=== PATIENT | male | born 1940 | race Caucasian/White ===

== ENCOUNTER 2021-03-26 07:51 | Outpatient (CLI) | payer MEDICARE, SELFPAY ==
--- NOTE | 2021-03-26 07:59 | US_ITS ---
History: Leg mass Ultrasound of the left lower extremity: Findings: 4.8 x 2.4 x 1.1 cm avascular cystic area noted along the proximal portion of the calf medially. Dissection of a Brice cyst to be considered. No complexity or hypervascularity to suggest hematoma or abscess. IMPRESSION: Benign cystic lesion of the left calf as described.. at 1212 Reported and signed by: Aneudy Luis MD Electronically Signed: Aneudy Luis MD at 12:11 EST Tel , Service support , US/Ext Non Vasc Limited/Soft Tiss
== END 2021-03-26 23:59 | disposition short-term general hospital (02) ==
PROVIDERS: PCP Family Medicine; Referring Provider Family Medicine; Visit Provider Family Medicine
DX: R22.42 Localized swelling, mass and lump, left lower limb (principal)
CPT/HCPCS: 76882

== ENCOUNTER → 2021-08-11 | Outpatient (CLI) | payer MEDICARE, SELFPAY | END | disposition home or self-care (01) | PROVIDERS: PCP Family Medicine; Referring Provider Podiatrist; Visit Provider Podiatrist | DX: L97.512 Non-pressure chronic ulcer of other part of right foot with fat layer exposed (principal) | CPT/HCPCS: 87070; 87075; 87077; 87186; 87205 ==

== ENCOUNTER 2021-10-05 08:00 | Outpatient (RCR) | payer MEDICARE, SELFPAY ==
[2021-09-28 07:51] VITALS: BP 151/93; PULSE 111; RESP 16; TEMP 36.2; BMI 28.6
--- NOTE | 2021-09-28 09:36 | PCM.WC.HP ---
History of Present Illness Date of Service: 09/28/21 Progress of Wound: 81-year-old male with history of cardiovascular disease presents with a chronic right hallux wound. Patient was being followed in my office. Patient was receiving weekly debridements with offloading via surgical shoe. Patient was noncompliant with use of surgical shoe. Presents today with residual wound to right hallux. Denies any constitutional symptoms or pain to the site. Patient is diabetic and has neuropathy. No new changes or complaints at this time. FOR[facility]LY [facility], [facility] Home Medications apixaban 5 mg tablet (Eliquis) 5 mg PO BID 09/28/21 [History Last Taken Unknown] aspirin 81 mg capsule 81 mg PO DAILY 09/28/21 [History Last Taken Unknown] atorvastatin 40 mg tablet 40 mg PO QHS 09/28/21 [History Last Taken Unknown] furosemide 20 mg tablet 20 mg PO DAILY 09/28/21 [History Last Taken Unknown] hydrochlorothiazide 50 mg tablet 50 mg PO DAILY 09/28/21 [History Last Taken Unknown] insulin glargine 100 unit/mL (3 mL) subcutaneous pen (Lantus Solostar U-100 Insulin) 24 unit subcut DAILY 09/28/21 [History Last Taken Unknown] metoprolol tartrate 50 mg tablet 75 mg PO BID 09/28/21 [History Last Taken Unknown] zgwqrmhklbwq-lufxscmi-bycqcw tablet 1 tab PO DAILY 09/28/21 [History Last Taken Unknown] thiamine HCl (vitamin B1) 50 mg tablet 50 mg PO DAILY 09/28/21 [History Last Taken Unknown] Allergy/AdvReac Type Severity Reaction Status Date / Time No Known Allergies Allergy Verified 09/28/21 08:00 Social History Smoking Status: Never smoker ROS Constitutional Constitutional: Denies chills, daytime sleepiness or headache(s) Eyes Eyes: Denies acute decrease in peripheral vision, change in vision or double vision ENT HEENT: Denies change in voice, facial pain or loss taste/smell Cardiovascular Cardiovascular: Denies abdominal pain, chest pain with activity or dyspnea at rest Respiratory/Chest Respiratory/Chest: Denies change in phlegm color, chest congestion or dyspnea on exertion Gastrointestinal Gastrointestinal: Denies bloating, cramping or heartburn Genitourinary Genitourinary: Denies burning urination, change in libido or dribbling Musculoskeletal Musculoskeletal: Denies deformity, difficulty walking or loss of height Integumentary Integumentary: Denies change in hair, change in pigmentation or lesions Neurologic Neurologic: Denies abnormal movements, dizziness or focal weakness Psychiatric Psychiatric: Denies auditory hallucinations, depression or memory loss Vital Signs Vital Signs Vital Signs: 09/28/21 07:51 Temperature 97.2 F L Temperature Source Temporal Pulse Rate 111 H Respiratory Rate 16 Blood Pressure 151/93 H Blood Pressure Mean 112 Blood Pressure Source Monitor Blood Pressure Position Sitting Blood Pressure Location Left Arm Oxygen Delivery Method Room Air Weight Weight: 83.007 kg Body Mass Index (BMI) 28.6 Physical Exam Narrative Patient alert oriented person place and time patient presents ambulating in normal shoe gear at this time. Vascular: Dorsalis pedis posterior tibial pulses 1 out of 4 bilaterally. Capillary fill time brisk to lesser digits. Absent digital hair growth atrophic skin changes noted. Neurologic light touch protective sensation diminished bilateral feet reestablish mid tibia. Dermatologic full-thickness wound to right plantar medial hallux. Postdebridement measurements document nursing notes are significant periwound callus no signs of infection deep probing or undermining at this time. Musculoskeletal: There is a hallux valgus deformity contributing to wound formation on the right lower extremity. No pain with calf squeeze muscular strength full to bilateral lower extremity compartments. Debridement Note Debridement Note Post-Debridement Measurements and Additional Note: Post-Debridement Measurements/Treatment - Nurse 1 - General Ulcer Assessment Start: 09/28/21 07:50 Freq: Status: Active Protocol: .LOWEXLesly Activity Type Activity Date Activity User E-sign Co-sign Detail Recorded Client Recorded Date Recorded By Document 09/28/21 07:51 [facility] [id number] 09/28/21 07:56 [facility] 09/28/21 07:51 - Today's Visit Information Type of service Follow-up Visit (Physician/[facility] [employer] ) Arrival Mode Ambulatory Transfer Assistance None Patient Identification Verified (Name & Yes ) Patient Requires Transmission-Based No Precautions Height and Weight Height 5 ft 7 in Weight 83.007 kg Weight in Pounds 183.0 lbs Weight Measurement Method Stated by Patient Body Mass Index (BMI) 28.6 BMI Classification Overweight BSA - Neo 1.95 Vital Signs Temperature (97.8 F-99.1 F) 97.2 F L Temperature Source Temporal Pulse Rate (60-100) 111 H Pulse Location Monitor Respiratory Rate (12-18) 16 Respiratory rate source Observation Oxygen Delivery Method Room Air Blood Pressure (90/60-120/80) 151/93 H Blood Pressure Mean 112 Source Monitor Position Sitting Blood Pressure Location Left Arm History Since Last Visit- (Skip if this is Patient's initial visit) Left Footwear Regular Shoe Right Footwear Regular Shoe Pain Scale: 0-10 Numeric Is Patient Pain Free? Yes Lower Extremity Assessment/ Foot Assessment/ Toe Nail Assessment Left -Posterior Tibial Doppler Monophasic -Dorsalis Pedis Doppler Monophasic -Extremity Color Pale -Hair Growth on Legs No -Hair Growth on Toes No -Temperature of Extremity Warm -Other Deformity No -Prior Foot Ulcer No -Charcot Joint No -Prior Amputation No -Thick Yes -Discolored Yes -Deformed No -Improper Length & Hygeine No Right -Posterior Tibial Doppler Monophasic -Dorsalis Pedis Doppler Monophasic -Extremity Color Pale -Hair Growth on Legs No -Hair Growth on Toes No -Temperature of Extremity Warm -Other Deformity No -Prior Foot Ulcer No -Charcot Joint No -Prior Amputation No -Thick Yes -Discolored Yes -Deformed No -Improper Length & Hygeine No Neuropathy Assessment Feet - Top Side and Bottom <Entered> (a) Communication Assessment Preferred language Dominican Desktop Support Consultant Required No Able to Read Yes Able to Write Yes Communication Tools None Right Hearing Abillity Normal Left Hearing Abillity Normal Visual Assistive Devices Glasses Teaching Assessment Preferences Verbal,Written, Audio/Visual, Demonstration Barriers to Learning None Readiness To Learn Excellent Willingness to Engage in Self Management High Activies Readiness to Engage in Self Management High Activities Anxiety Level Calm Cooperation Cooperative Perception Coherent Interest in Health Problem Asks Questions Education Importance Acknowledges Need Does Patient Smoke tobacco or other No substances Smoking Status Never smoker Is Patient Diabetic Yes Functional Assessment Recent Decline in Ability to Perform Denies Any Declines Culture/Spiritism/Rehabilitation Assistant Cultural/Spiritism Needs that may affect No Treatment Plan Teaching: Wound Center *Welcome to the Wound Center -Person Taught Patient -Teaching Method Discussion -Response to teaching Verbalize understanding Welcome to the Wound Care Center Dominican (a) 1 - + WC - Nurse 1 - General Ulcer Measurement Start: 09/28/21 07:50 Freq: Status: Active Protocol: Activity Type Activity Date Activity User E-sign Co-sign Detail Recorded Client Recorded Date Recorded By Document 09/28/21 07:51 [facility] [id number] 09/28/21 07:56 [facility] 09/28/21 07:51 Wound Center Nurse 1 #1- R PLANTAR HALLUX -Combined with other wound No -Current Size (cm) - Length 0.5 -Current Size (cm) - Width 0.5 -Current Size (cm) - Depth 0.5 -Total Square Cm 0.25 -Date of Last Picture (Recall this 09/28/21 field) -Photo Taken Yes -Tunneling No -Undermining/Tunneling No -Circular Undermining No -Exudate Amt Small -Exudate Type Sanguineous -Wound Margin Distinct, Outline Attached -Granulation Amt Large (67-100%) -Granulation Quality Red -Slough/Fibrin No -Necrosis Amt None Present (0 %) -Texture (Neema-wound Skin Appearance) Assessed,Callus ,Scarring -Moisture (Neema-wound Skin Appearance) Dry/Scaly -Color (Neema-wound Skin Appearance) Assessed -Temperature (Neema-wound Skin No Abnormality Appearance) (Pt Warm) -Tenderness on Palpation (Neema-wound No Skin Appearance) -Ulcer Cleansing Rinsed/ Irrigated with Saline -Foul Odor after Cleansing No -Anesthetic Used 5% Lidocaine Gel Lower Limb Edema Present Yes Right Calf (cm) 37 Right Ankle (cm) 25.6 Left Calf (cm) 35.5 Left Ankle (cm) 24.5 - Nurse 2 - General Ulcer CM Notes Start: 09/28/21 07:50 Freq: Status: Active Protocol: Activity Type Activity Date Activity User E-sign Co-sign Detail Recorded Client Recorded Date Recorded By Document 09/28/21 08:22 [id number] 09/28/21 08:24 09/28/21 08:22 Wound Center Nurse 2 #1- R PLANTAR HALLUX -Time 08:23 -Correct Patient Yes -Correct Side, Site, Position Yes -Correct Procedure Yes -Procedure Performed Yes -Type of Procedure Debridement -Clinical Debridement Subcutaneous -Tissue Removed Subcutaneous -Post Debridement (cm) - Length 0.6 -Post Debridement (cm) - Width 0.5 -Post Debridement (cm) - Depth 0.2 -Total Square (Post) (cm) 0.30 -Area of Debridement (cm) - Length 0.6 -Area of Debridement (cm) - Width 0.5 -Total Square (Area) (cm) 0.30 -Tunneling No -Undermining/Tunneling No -Circular Undermining No -Wound/Ulcer Outcome Not Healed -Ulcer Cleansing Rinsed/ Irrigated with Saline -Foul Odor after Cleansing No -Bioengineered Tissue No -Bleeding Controlled with Pressure -Treatment Response Procedure Tolerated Well -Offloading Yes -Type of Offloading Surgical Shoe -Debridement - Subq, 1st 20sq cm Yes Pain Scale: 0-10 Numeric Is Patient Pain Free? Yes - Nurse 3 - General Ulcer D/C NN Start: 09/28/21 07:50 Freq: Status: Active Protocol: Activity Type Activity Date Activity User E-sign Co-sign Detail Recorded Client Recorded Date Recorded By Document 09/28/21 08:40 МАРИЯ [id number] 09/28/21 08:41 МАРИЯ 09/28/21 08:40 Wound Care Nurse 3 #1- R PLANTAR HALLUX -Ulcer Cleansing Rinsed/ Irrigated with Saline -Foul Odor after Cleansing No -Negative Pressure Wound Therapy N/A -Primary Dressing Applied C Hydrogel ($) -Primary Dressing Covered/Secured with Dry Gauze, Secured with Tape Pain Scale: 0-10 Numeric Is Patient Pain Free? Yes WC - Visit Discharge Discharge Condition Stable Ambulatory Status Ambulatory Transportation Private Auto Medication Reconcilliation completed & Yes provided to patient/care provider Clinical Summary of Care Provided Yes Assessment/Plan Assessment/Plan (1) Non-pressure chronic ulcer of other part of right foot with fat layer exposed: CODE(S): L97.512 - Non-pressure chronic ulcer of other part of right foot with fat layer exposed PLAN: Patient examined evaluated, all findings as patient great detail. Due to history of cardiovascular disease and diabetes I recommend ordering arterial studies. Right hallux wound appears to be stable and noninfected at this time I recommend improved offloading to heal the wound. Patient has been inconsistent with use of surgical shoe and offloading pad. At this time I have recommended correction of his hallux valgus deformity surgically versus total contact casting, patient defers both. Wound was excisionally debrided down to including level of subcutaneous tissue of all nonviable tissue using a #15 blade without incident. Hemostasis obtained with light compression. No anesthesia due to neuropathy. Patient tolerated procedure well. Pre and postdebridement measurements document nursing notes. Recommend daily dressing with hydrogel and 4 x 4 with gauze tape. I have discussed in great detail the purpose of offloading the wound and how this will assist healing, patient will be more compliant moving forward. We will consider total contact casting or surgical intervention pending any delays. Follow-up in 1 week. (2) Peripheral vascular disease, unspecified: CODE(S): I73.9 - Peripheral vascular disease, unspecified
[2021-10-05 08:05] VITALS: BP 142/94; PULSE 105; RESP 20; TEMP 36.8; BMI 28.6
--- NOTE | 2021-10-05 09:03 | PN.PCM_ITS ---
History of Present Illness Date of Service: 10/05/21 Progress of Wound: 81-year-old male with history of cardiovascular disease presents with a chronic right hallux wound. Patient was being followed in my office. Patient was receiving weekly debridements with offloading via surgical shoe. Patient was noncompliant with use of surgical shoe. Presents today with residual wound to right hallux. Denies any constitutional symptoms or pain to the site. Patient is diabetic and has neuropathy. No new changes or complaints at this time. Objective Data Objective Data Vital Signs: Vital Signs Temp Pulse Resp BP O2 Del Method 98.3 F 105 H 20 H 142/94 H Room Air 10/05/21 08:05 10/05/21 08:05 10/05/21 08:05 10/05/21 08:05 09/28/21 07:51 Oxygen Delivery Method Room Air Weight: 83.007 kg Body Mass Index (BMI) 28.6 Physical Exam Narrative Patient alert oriented person place and time patient presents ambulating in normal shoe gear at this time. Vascular: Dorsalis pedis posterior tibial pulses 1 out of 4 bilaterally. Capillary fill time brisk to lesser digits. Absent digital hair growth atrophic skin changes noted. Neurologic light touch protective sensation diminished bilateral feet reestablish mid tibia. Dermatologic full-thickness wound to right plantar medial hallux. Postde bridement measurements document nursing notes are significant periwound callus no signs of infection deep probing or undermining at this time. Musculoskeletal: There is a hallux valgus deformity contributing to wound formation on the right lower extremity. No pain with calf squeeze muscular strength full to bilateral lower extremity compartments. Debridement Note Debridement Note Post-Debridement Measurements and Additional Note: Post-Debridement Measurements/Treatment - Nurse 1 - General Ulcer Assessment Start: 09/28/21 07:50 Freq: Status: Active Protocol: [email or web address].LOWEXT Activity Type Activity Date Activity User E-sign Co-sign Detail Recorded Client Recorded Date Recorded By Document 09/28/21 07:51 [facility] [id number] 09/28/21 07:56 BMF Document 10/05/21 08:05 DL [id number] 10/05/21 08:10 DL 09/28/21 10/05/21 07:51 08:05 - Today's Visit Information Type of service Follow-up Visit Follow-up Visit (Physician/JUNIOR NETWORK ADMINISTRATOR (Physician/JUNIOR NETWORK ADMINISTRATOR ) ) Arrival Mode Ambulatory Ambulatory Transfer Assistance None None Patient Identification Verified (Name & Yes Yes ) Patient Requires Transmission-Based No No Precautions Finger Stick Blood Sugar(mg/dl) (if not checked indicated): Blood Sugar Stated by Patient Height and Weight Height 5 ft 7 in Weight 83.007 kg Weight in Pounds 183.0 lbs Weight Measurement Method Stated by Patient Body Mass Index (BMI) 28.6 28.6 BMI Classification Overweight Overweight BSA - Neo 1.95 Vital Signs Temperature (97.8 F-99.1 F) 97.2 F L 98.3 F Temperature Source Temporal Temporal Pulse Rate (60-100) 111 H 105 H Pulse Location Monitor Monitor Respiratory Rate (12-18) 16 20 H Respiratory rate source Observation Observation Oxygen Delivery Method Room Air Blood Pressure (90/60-120/80) 151/93 H 142/94 H Blood Pressure Mean (mm Hg) 112 110 Source Monitor Monitor Position Sitting Blood Pressure Location Left Arm History Since Last Visit- (Skip if this is Patient's initial visit) Have you changed medications since your No last visit? Any new allergies or adverse reactions No Had a fall/change in ADL's that may No increase risk of falls Signs or symptoms of abuse and/or No neglect since last visit Have you been in the hospital since your No last visit? Has dressing in place as prescribed Yes Has compression in place as prescribed N/A Experienced any changes in pain level or No management Left Footwear Regular Shoe Regular Shoe Right Footwear Regular Shoe Regular Shoe Pain Scale: 0-10 Numeric Is Patient Pain Free? Yes Yes Lower Extremity Assessment/ Foot Assessment/ Toe Nail Assessment Left -Posterior Tibial Doppler Monophasic -Dorsalis Pedis Doppler Monophasic -Extremity Color Pale -Hair Growth on Legs No -Hair Growth on Toes No -Temperature of Extremity Warm -Other Deformity No -Prior Foot Ulcer No -Charcot Joint No -Prior Amputation No -Thick Yes -Discolored Yes -Deformed No -Improper Length & Hygeine No Right -Posterior Tibial Doppler Monophasic -Dorsalis Pedis Doppler Monophasic -Extremity Color Pale -Hair Growth on Legs No -Hair Growth on Toes No -Temperature of Extremity Warm -Other Deformity No -Prior Foot Ulcer No -Charcot Joint No -Prior Amputation No -Thick Yes -Discolored Yes -Deformed No -Improper Length & Hygeine No Neuropathy Assessment Feet - Top Side and Bottom <Entered> (a) Communication Assessment Preferred language Palestinian Student Services Dean Required No Able to Read Yes Able to Write Yes Communication Tools None Right Hearing Abillity Normal Left Hearing Abillity Normal Visual Assistive Devices Glasses Teaching Assessment Preferences Verbal,Written, Audio/Visual, Demonstration Barriers to Learning None Readiness To Learn Excellent Willingness to Engage in Self Management High Activies Readiness to Engage in Self Management High Activities Anxiety Level Calm Cooperation Cooperative Perception Coherent Interest in Health Problem Asks Questions Education Importance Acknowledges Need Does Patient Smoke tobacco or other No substances Smoking Status Never smoker Is Patient Diabetic Yes Functional Assessment Recent Decline in Ability to Perform Denies Any Declines Culture/Hinduism/Sales Department Manager Cultural/Hinduism Needs that may affect No Treatment Plan Teaching: Wound Center *Welcome to the Wound Center -Person Taught Patient -Teaching Method Discussion -Response to teaching Verbalize understanding Welcome to the [facility] Palestinian (a) 1 - + WC - Nurse 1 - General Ulcer Measurement Start: 09/28/21 07:50 Freq: Status: Active Protocol: Activity Type Activity Date Activity User E-sign Co-sign Detail Recorded Client Recorded Date Recorded By Document 09/28/21 07:51 [facility] [id number] 09/28/21 07:56 [facility] Document 10/05/21 08:05 [id number] 10/05/21 08:10 DL 09/28/21 10/05/21 07:51 08:05 Wound Center Nurse 1 #1- R PLANTAR HALLUX -Combined with other wound No -Current Size (cm) - Length 0.5 0.4 -Current Size (cm) - Width 0.5 0.2 -Current Size (cm) - Depth 0.5 0.2 -Total Square Cm 0.25 0.08 -Date of Last Picture (Recall this 09/28/21 field) -Photo Taken Yes -Tunneling No -Undermining/Tunneling No -Undermining/Tunneling Starts (O'clock 12 ) -Undermining/Tunneling Ends (O'clock) 12 -Maximum Distance (cm) 0.2 -Circular Undermining No -Exudate Amt Small None Present -Exudate Type Sanguineous -Wound Margin Distinct, Distinct, Outline Outline Attached Attached -Granulation Amt Large (67-100%) Large (67-100%) -Granulation Quality Red Pale -Slough/Fibrin No -Necrosis Amt None Present (0 None Present (0 %) %) -Texture (Neema-wound Skin Appearance) Assessed,Callus Assessed, ,Scarring Scarring -Moisture (Neema-wound Skin Appearance) Dry/Scaly Assessed,Dry/ Scaly -Color (Neema-wound Skin Appearance) Assessed No Abnormality, Assessed -Temperature (Neema-wound Skin No Abnormality No Abnormality Appearance) (Pt Warm) (Pt Warm) -Tenderness on Palpation (Neema-wound No No Skin Appearance) -Ulcer Cleansing Rinsed/ Rinsed/ Irrigated with Irrigated with Saline Saline -Foul Odor after Cleansing No No -Anesthetic Used 5% Lidocaine 5% Lidocaine Gel Gel Lower Limb Edema Present Yes Right Calf (cm) 37 Right Ankle (cm) 25.6 Left Calf (cm) 35.5 Left Ankle (cm) 24.5 WC - Nurse 2 - General Ulcer CM Notes Start: 09/28/21 07:50 Freq: Status: Active Protocol: Activity Type Activity Date Activity User E-sign Co-sign Detail Recorded Client Recorded Date Recorded By Document 09/28/21 08:22 [id number] 09/28/21 08:24 Document 10/05/21 08:37 [id number] 10/05/21 08:39 09/28/21 10/05/21 08:22 08:37 Wound Center Nurse 2 #1- R PLANTAR HALLUX -Time 08:23 08:38 -Correct Patient Yes Yes -Correct Side, Site, Position Yes Yes -Correct Procedure Yes Yes -Procedure Performed Yes Yes -Type of Procedure Debridement Debridement -Clinical Debridement Subcutaneous Subcutaneous -Tissue Removed Subcutaneous Subcutaneous -Post Debridement (cm) - Length 0.6 0.5 -Post Debridement (cm) - Width 0.5 0.2 -Post Debridement (cm) - Depth 0.2 0.2 -Total Square (Post) (cm) 0.30 0.10 -Area of Debridement (cm) - Length 0.6 0.5 -Area of Debridement (cm) - Width 0.5 0.2 -Total Square (Area) (cm) 0.30 0.10 -Tunneling No No -Undermining/Tunneling No No -Circular Undermining No No -Wound/Ulcer Outcome Not Healed Not Healed -Ulcer Cleansing Rinsed/ Rinsed/ Irrigated with Irrigated with Saline Saline -Foul Odor after Cleansing No No -Bioengineered Tissue No No -Bleeding Controlled with Pressure Pressure -Treatment Response Procedure Procedure Tolerated Well Tolerated Well -Offloading Yes Yes -Type of Offloading Surgical Shoe Surgical Shoe -Debridement - Subq, 1st 20sq cm Yes Yes Pain Scale: 0-10 Numeric Is Patient Pain Free? Yes Yes - Nurse 3 - General Ulcer D/C NN Start: 09/28/21 07:50 Freq: Status: Active Protocol: Activity Type Activity Date Activity User E-sign Co-sign Detail Recorded Client Recorded Date Recorded By Document 09/28/21 08:40 AK [id number] 09/28/21 08:41 AK Document 10/05/21 08:45 KR [id number] 10/05/21 08:45 KR 09/28/21 10/05/21 08:40 08:45 Wound Care Nurse 3 #1- R PLANTAR HALLUX -Ulcer Cleansing Rinsed/ Rinsed/ Irrigated with Irrigated with Saline Saline -Foul Odor after Cleansing No -Negative Pressure Wound Therapy N/A -Primary Dressing Applied C Hydrogel ($) C Hydrogel ($) -Primary Dressing Covered/Secured with Dry Gauze, Dry Gauze, Secured with Secured with Tape Tape Pain Scale: 0-10 Numeric Is Patient Pain Free? Yes Yes - Visit Discharge Discharge Condition Stable Stable Ambulatory Status Ambulatory Ambulatory Transportation Private Auto Private Auto Medication Reconcilliation completed & Yes provided to patient/care provider Clinical Summary of Care Provided Yes Assessment/Plan Assessment/Plan (1) Non-pressure chronic ulcer of other part of right foot with fat layer exposed: CODE(S): L97.512 - Non-pressure chronic ulcer of other part of right foot with fat layer exposed PLAN: Patient examined evaluated, all findings as patient great detail. Due to history of cardiovascular disease and diabetes I recommend ordering arterial studies. Right hallux wound appears to be stable and noninfected at this time I recommend improved offloading to heal the wound. Patient has been inconsistent with use of surgical shoe and offloading pad. At this time I have recommended correction of his hallux valgus deformity surgically versus total contact casting, patient defers both. Wound was excisionally debrided down to including level of subcutaneous tissue of all nonviable tissue using a #15 blade without incident. Hemostasis obtained with light compression. No anesthesia due to neuropathy. Patient tolerated procedure well. Pre and postdebridement measurements document nursing notes. Recommend daily dressing with hydrogel and 4 x 4 with gauze tape. I have discussed in great detail the purpose of offloading the wound and how this will assist healing, patient will be more compliant moving forward. We will consider total contact casting or surgical intervention pending any delays. Follow-up in 1 week. Wound improved, follow up in 3 weeks. Continue offloading with surgical shoe and offloading pad. I will recommend TCC if no healing on follow up. (2) Peripheral vascular disease, unspecified: CODE(S): I73.9 - Peripheral vascular disease, unspecified
== END 2021-10-17 23:59 | disposition home or self-care (01) ==
LOC: WC 08:00
PROVIDERS: PCP Family Medicine; Visit Provider Podiatrist
DX: L97.512 Non-pressure chronic ulcer of other part of right foot with fat layer exposed (principal); I73.9 Peripheral vascular disease, unspecified; Z79.01 Long term (current) use of anticoagulants; R60.0 Localized edema
CPT/HCPCS: 11042; 99213; G0463

== ENCOUNTER → 2021-11-04 | Outpatient (CLI) | payer MEDICARE, SELFPAY ==
--- NOTE | 2021-11-04 13:59 | ART_ITS ---
Reason For Study: PVD Procedure A bilateral lower extremity continuous wave Doppler with analog waveform analysis,segmental pressures,and ankle brachial indexes without exercise. Left Segmental Pressures Left brachial= 172mmHg. Left posterior tibial artery = 190mmHg. Left dorsalis pedis artery = 217mmHg. Left digit = 156 mmHg. The left dorsalis pedis waveforms are triphasic. The left posterior tibial artery waveforms are triphasic. Right Segmental Pressures Right brachial= 172mmHg. Right posterior tibial artery = 224mmHg. Right dorsalis pedis artery = 209mmHg. The right dorsalis pedis waveforms are triphasic. The right posterior tibial artery waveforms are triphasic. Indices The right ankle brachial index by the dorsalis pedis is 1.22. The right ankle brachial index by the posterior tibial artery is 1.30. The left ankle brachial index by the dorsalis pedis is 1.26. The left ankle brachial index by the posterior tibial artery is 1.10. The left digital-brachial index is 0.91. VL/Lower Ext Art Exam w/o Exercis Interpretation Summary Triphasic Doppler waveforms are noted at ankle level bilaterally. Pulse-volume recordings appear satisfactory at all levels bilaterally. Resting ankle-brachial indices are norm al bilaterally. The right digital-brachial index was not determined due to the presence of a bandag e. The left digital- brachial index is normal. Arterial flow appears normal at ankle level bilaterally, and at digital level o n the left. Arterial flow was not assessed at digital level on the right. Ordering Physician: Charles Romero Referring Physician: Theo Mendoza Performed By: Maria G Puckett RVT
== END | disposition home or self-care (01) ==
PROVIDERS: PCP Family Medicine; Visit Provider Podiatrist
DX: I73.9 Peripheral vascular disease, unspecified (principal)
CPT/HCPCS: 93923

== ENCOUNTER 2021-11-09 08:15 | Outpatient (RCR) | payer MEDICARE, SELFPAY ==
[2021-10-18 00:38] VITALS: BP 142/94; PULSE 105; RESP 20; TEMP 36.8; BMI 28.6
[2021-10-26 08:25] VITALS: BP 142/93; PULSE 103; RESP 20; TEMP 36.1; BMI 28.6
--- NOTE | 2021-10-26 09:04 | PN.PCM_ITS ---
History of Present Illness Date of Service: 10/05/21 Progress of Wound: 81-year-old male with history of cardiovascular disease presents with a chronic right hallux wound. Patient was being followed in my office. Patient was receiving weekly debridements with offloading via surgical shoe. Patient was noncompliant with use of surgical shoe. Presents today with residual wound to right hallux. Denies any constitutional symptoms or pain to the site. Patient is diabetic and has neuropathy. No new changes or complaints at this time. Objective Data Objective Data Vital Signs: Vital Signs Temp Pulse Resp BP 96.9 F L 103 H 20 H 142/93 H 10/26/21 08:25 10/26/21 08:25 10/26/21 08:25 10/26/21 08:25 Weight: 83.007 kg Body Mass Index (BMI) 28.6 Physical Exam Narrative Patient alert oriented person place and time patient presents ambulating in normal shoe gear at this time. Vascular: Dorsalis pedis posterior tibial pulses 1 out of 4 bilaterally. Capillary fill time brisk to lesser digits. Absent digital hair growth atrophic skin changes noted. Neurologic light touch protective sensation diminished bilateral feet reestablish mid tibia. Dermatologic full-thickness wound to right plantar medial hallux. Post debridement measurements document nursing notes are significant periwound callus no signs of infection deep probing or undermining at this time. Musculoskeletal: There is a hallux valgus deformity contributing to wound formation on the right lower extremity. No pain with calf squeeze muscular strength full to bilateral lower extremity compartments. Debridement Note Debridement Note Post-Debridement Measurements and Additional Note: Post-Debridement Measurements/Treatment - Nurse 1 - General Ulcer Assessment Start: 10/26/21 08:25 Freq: Status: Active Protocol: [email or web address].LOWEXLesly Activity Type Activity Date Activity User E-sign Co-sign Detail Recorded Client Recorded Date Recorded By Document 10/26/21 08:25 DL [id number] 10/26/21 08:28 DL Edit Result 10/26/21 08:25 DL (1) [id number] 10/26/21 08:30 DL (1) Blood Pressure (90/60-120/80) 154/100 H => 142/93 H Blood Pressure Mean (mm Hg) 118 => 109 10/26/21 08:25 WC - Today's Visit Information Type of service Follow-up Visit (Physician/NUCLEAR FUELS RECLAMATION ENGINEER ) Arrival Mode Ambulatory Transfer Assistance None Patient Identification Verified (Name & Yes ) Patient Requires Transmission-Based No Precautions Safety Precautions NA Height and Weight Body Mass Index (BMI) 28.6 BMI Classification Overweight Vital Signs Temperature (97.8 F-99.1 F) 96.9 F L Temperature Source Temporal Pulse Rate (60-100) 103 H Pulse Location Monitor Respiratory Rate (12-18) 20 H Respiratory rate source Observation Blood Pressure (90/60-120/80) 142/93 H Blood Pressure Mean (mm Hg) 109 Source Monitor History Since Last Visit- (Skip if this is Patient's initial visit) Have you changed medications since your No last visit? Any new allergies or adverse reactions No Had a fall/change in ADL's that may No increase risk of falls Signs or symptoms of abuse and/or No neglect since last visit Have you been in the hospital since your No last visit? Has dressing in place as prescribed Yes Has compression in place as prescribed Yes Experienced any changes in pain level or No management Left Footwear Regular Shoe Right Footwear Regular Shoe Pain Scale: 0-10 Numeric Is Patient Pain Free? Yes - Nurse 1 - General Ulcer Measurement Start: 10/26/21 08:25 Freq: Status: Active Protocol: Activity Type Activity Date Activity User E-sign Co-sign Detail Recorded Client Recorded Date Recorded By Document 10/26/21 08:25 [id number] 10/26/21 08:28 DL 10/26/21 08:25 Wound Center Nurse 1 #1- R PLANTAR HALLUX -Current Size (cm) - Length 0.3 -Current Size (cm) - Width 0.2 -Current Size (cm) - Depth 0.3 -Total Square Cm 0.06 -Photo Taken No -Maximum Distance #2 (cm) 0.2 -Circular Undermining Yes -Exudate Amt Medium -Exudate Type Serosanguineous -Wound Margin Thickened -Granulation Amt Small (1-33%) -Granulation Quality Pale,Red -Necrosis Amt Small (1-33%) -Structure Exposed N/A -Texture (Neema-wound Skin Appearance) Callus,Scarring -Moisture (Neema-wound Skin Appearance) Dry/Scaly -Color (Neema-wound Skin Appearance) No Abnormality -Temperature (Neema-wound Skin No Abnormality Appearance) (Pt Warm) -Ulcer Cleansing Soap and Water -Foul Odor after Cleansing No -Anesthetic Used 5% Lidocaine Gel WC - Nurse 2 - General Ulcer CM Notes Start: 10/26/21 08:25 Freq: Status: Active Protocol: Activity Type Activity Date Activity User E-sign Co-sign Detail Recorded Client Recorded Date Recorded By Document 10/26/21 08:57 MARK [id number] 10/26/21 09:02 MARK 10/26/21 08:57 Wound Center Nurse 2 -Time 08:59 -Correct Patient Yes -Correct Side, Site, Position Yes -Correct Procedure Yes -Procedure Performed Yes -Type of Procedure Debridement -Clinical Debridement Subcutaneous -Tissue Removed Subcutaneous -Post Debridement (cm) - Length 1.7 -Post Debridement (cm) - Width 0.8 -Post Debridement (cm) - Depth 0.2 -Total Square (Post) (cm) 1.36 -Area of Debridement (cm) - Length 1.7 -Area of Debridement (cm) - Width 0.8 -Total Square (Area) (cm) 1.36 -Tunneling No -Undermining/Tunneling No -Circular Undermining No -Wound/Ulcer Outcome Not Healed -Ulcer Cleansing Rinsed/ Irrigated with Saline -Foul Odor after Cleansing No -Bioengineered Tissue No -Bleeding Controlled with Pressure,Silver Nitrate -Treatment Response Procedure Tolerated Well -Offloading Yes -Type of Offloading Surgical Shoe -Debridement - Subq, 1st 20sq cm Yes Pain Scale: 0-10 Numeric Is Patient Pain Free? Yes Assessment/Plan Assessment/Plan (1) Non-pressure chronic ulcer of other part of right foot with fat layer exposed: CODE(S): L97.512 - Non-pressure chronic ulcer of other part of right foot with fat layer exposed PLAN: Patient examined evaluated, all findings as patient great detail. Awaiting vascular studies. Right hallux wound appears to be stable and noninfected at this time I recommend improved offloading to heal the wound. Patient has been inconsistent with use of surgical shoe and offloading pad. Planning for total contact casting once patient gets his vascular studies. He will continue surgical shoe with offloading pad. Patient was having some issues with his lumbar spine due to offset nature. Recommend getting an even up from our office. Wound was excisionally debrided down to including level of subcutaneous tissue of all nonviable tissue using a #15 blade without incident. Hemostasis obtained with light compression. No anesthesia due to neuropathy. Patient tolerated procedure well. Pre and postdebridement measurements document nursing notes. Recommend daily dressing with hydrogel and 4 x 4 with gauze tape. I have discussed in great detail the purpose of offloading the wound and how this will assist healing, patient will be more compliant moving forward. We will consider total contact casting or surgical intervention pending any delays. Follow-up in 1 week. Wound improved, follow up in 3 weeks. Continue offloading with surgical shoe and offloading pad. I will recommend TCC if no healing on follow up. (2) Peripheral vascular disease, unspecified: CODE(S): I73.9 - Peripheral vascular disease, unspecified
[2021-11-02 08:09] VITALS: BP 151/107; PULSE 106; TEMP 36.2; BMI 28.6
--- NOTE | 2021-11-02 09:01 | PCM.WC.PN ---
History of Present Illness Date of Service: 11/02/21 Progress of Wound: 81-year-old male with history of cardiovascular disease presents with a chronic right hallux wound. Patient was being followed in my office. Patient was receiving weekly debridements with offloading via surgical shoe. Patient was noncompliant with use of surgical shoe. Presents today with residual wound to right hallux. Denies any constitutional symptoms or pain to the site. Patient is diabetic and has neuropathy. No new changes or complaints at this time. Objective Data Objective Data Vital Signs: Vital Signs Temp Pulse Resp BP 97.1 F L 106 H 20 H 151/107 H 11/02/21 08:09 11/02/21 08:09 10/26/21 08:25 11/02/21 08:09 Weight: 83.007 kg Body Mass Index (BMI) 28.6 Physical Exam Narrative Patient alert oriented person place and time patient presents ambulating in normal shoe gear at this time. Vascular: Dorsalis pedis posterior tibial pulses 1 out of 4 bilaterally. Capillary fill time brisk to lesser digits. Absent digital hair growth atrophic skin changes noted. Neurologic light touch protective sensation diminished bilateral feet reestablish mid tibia. Dermatologic full-thickness wound to right plantar medial hallux. Postdebridement measurements document nursing notes are significant periwound callus no signs of infection deep probing or undermining at this time. Musculoskeletal: There is a hallux valgus deformity contributing to wound formation on the right lower extremity. No pain with calf squeeze muscular strength full to bilateral lower extremity compartments. Debridement Note Debridement Note Post-Debridement Measurements and Additional Note: Post-Debridement Measurements/Treatment WC - Nurse 1 - General Ulcer Assessment Start: 10/26/21 08:25 Freq: Status: Active Protocol: ADRIANNA.LOWEXT Activity Type Activity Date Activity User E-sign Co-sign Detail Recorded Client Recorded Date Recorded By Document 10/26/21 08:25 DL [id number] 10/26/21 08:28 DL Edit Result 10/26/21 08:25 DL (1) [id number] 10/26/21 08:30 DL Document 11/02/21 08:09 AK [id number] 11/02/21 08:14 AK (1) Blood Pressure (90/60-120/80) 154/100 H => 142/93 H Blood Pressure Mean (mm Hg) 118 => 109 10/26/21 11/02/21 08:25 08:09 WC - Today's Visit Information Type of service Follow-up Visit Follow-up Visit (Physician/RN INTERNATIONAL (Physician/RN INTERNATIONAL ) ) Arrival Mode Ambulatory Ambulatory Transfer Assistance None Patient Identification Verified (Name & Yes Yes ) Patient Requires Transmission-Based No No Precautions Safety Precautions NA NA Height and Weight Body Mass Index (BMI) 28.6 28.6 BMI Classification Overweight Overweight Vital Signs Temperature (97.8 F-99.1 F) 96.9 F L 97.1 F L Temperature Source Temporal Temporal Pulse Rate (60-100) 103 H 106 H Pulse Location Monitor Monitor Respiratory Rate (12-18) 20 H Respiratory rate source Observation Blood Pressure (90/60-120/80) 142/93 H 151/107 H Blood Pressure Mean (mm Hg) 109 121 Source Monitor Monitor History Since Last Visit- (Skip if this is Patient's initial visit) Have you changed medications since your No No last visit? Any new allergies or adverse reactions No No Had a fall/change in ADL's that may No No increase risk of falls Signs or symptoms of abuse and/or No No neglect since last visit Have you been in the hospital since your No No last visit? Has dressing in place as prescribed Yes Yes Has compression in place as prescribed Yes N/A Has offloadiing in place as prescribed N/A Experienced any changes in pain level or No No management Left Footwear Regular Shoe Regular Shoe Right Footwear Regular Shoe Regular Shoe Pain Scale: 0-10 Numeric Is Patient Pain Free? Yes Yes - Nurse 1 - General Ulcer Measurement Start: 10/26/21 08:25 Freq: Status: Active Protocol: Activity Type Activity Date Activity User E-sign Co-sign Detail Recorded Client Recorded Date Recorded By Document 10/26/21 08:25 DL [id number] 10/26/21 08:28 DL Document 11/02/21 08:09 AK [id number] 11/02/21 08:14 AK 10/26/21 11/02/21 08:25 08:09 Wound Center Nurse 1 #1- R PLANTAR HALLUX -Combined with other wound No -Current Size (cm) - Length 0.3 0.6 -Current Size (cm) - Width 0.2 0.5 -Current Size (cm) - Depth 0.3 0.1 -Total Square Cm 0.06 0.30 -Photo Taken No No -Epithelialization None Present -Tunneling No -Undermining/Tunneling No -Maximum Distance #2 (cm) 0.2 -Circular Undermining Yes No -Change in Wound Grade/Stage No -Exudate Amt Medium Medium -Exudate Type Serosanguineous Serosanguineous -Wound Margin Thickened Distinct, Outline Attached -Granulation Amt Small (1-33%) Small (1-33%) -Granulation Quality Pale,Red [place] -Slough/Fibrin Yes -Necrosis Amt Small (1-33%) Small (1-33%) -Necrotic Tissue Type Adherent Slough -Structure Exposed N/A N/A -Texture (Neema-wound Skin Appearance) Callus,Scarring Assessed,Callus -Moisture (Neema-wound Skin Appearance) Dry/Scaly No Abnormality, Assessed -Color (Neema-wound Skin Appearance) No Abnormality No Abnormality, Assessed -Temperature (Neema-wound Skin No Abnormality No Abnormality Appearance) (Pt Warm) (Pt Warm) -Tenderness on Palpation (Neema-wound No Skin Appearance) -Ulcer Cleansing Soap and Water Rinsed/ Irrigated with Saline -Foul Odor after Cleansing No No -Anesthetic Used 5% Lidocaine 5% Lidocaine Gel Gel WC - Nurse 2 - General Ulcer CM Notes Start: 10/26/21 08:25 Freq: Status: Active Protocol: Activity Type Activity Date Activity User E-sign Co-sign Detail Recorded Client Recorded Date Recorded By Document 10/26/21 08:57 [id number] 10/26/21 09:02 Document 11/02/21 08:27 [id number] 11/02/21 08:31 10/26/21 11/02/21 08:57 08:27 Wound Center Nurse 2 #1- R PLANTAR HALLUX -Time 08:59 08:27 -Correct Patient Yes Yes -Correct Side, Site, Position Yes Yes -Correct Procedure Yes Yes -Procedure Performed Yes Yes -Type of Procedure Debridement Debridement -Clinical Debridement Subcutaneous Subcutaneous -Tissue Removed Subcutaneous Subcutaneous -Post Debridement (cm) - Length 1.7 0.7 -Post Debridement (cm) - Width 0.8 0.4 -Post Debridement (cm) - Depth 0.2 0.2 -Total Square (Post) (cm) 1.36 0.28 -Area of Debridement (cm) - Length 1.7 0.7 -Area of Debridement (cm) - Width 0.8 0.4 -Total Square (Area) (cm) 1.36 0.28 -Tunneling No No -Undermining/Tunneling No No -Circular Undermining No No -Wound/Ulcer Outcome Not Healed Not Healed -Ulcer Cleansing Rinsed/ Rinsed/ Irrigated with Irrigated with Saline Saline -Foul Odor after Cleansing No No -Bioengineered Tissue No No -Bleeding Controlled with Pressure,Silver Pressure Nitrate -Treatment Response Procedure Procedure Tolerated Well Tolerated Well -Offloading Yes Yes -Type of Offloading Surgical Shoe Surgical Shoe -Debridement - Subq, 1st 20sq cm Yes Yes Pain Scale: 0-10 Numeric Is Patient Pain Free? Yes Yes - Nurse 3 - General Ulcer D/C NN Start: 10/26/21 08:25 Freq: Status: Active Protocol: Activity Type Activity Date Activity User E-sign Co-sign Detail Recorded Client Recorded Date Recorded By Document 10/26/21 09:10 MW Desktop 10/26/21 09:11 MW Document 11/02/21 08:37 MW [id number] 11/02/21 08:38 MW 10/26/21 11/02/21 09:10 08:37 Wound Care Nurse 3 #1- R PLANTAR HALLUX -Ulcer Cleansing Rinsed/ Rinsed/ Irrigated with Irrigated with Saline Saline -Foul Odor after Cleansing No No -Negative Pressure Wound Therapy N/A N/A -Primary Dressing Applied Aquacel AG 4x4 Aquacel AG 2x2 -Other Dressing betadine -Primary Dressing Covered/Secured with Dry Gauze Dry Gauze, Secured with Tape -Aquacel AG 4x4 1 -Aquacel AG 2x2 1 Treatment Response Procedure Procedure Tolerated Well Tolerated Well Pain Scale: 0-10 Numeric Is Patient Pain Free? Yes Yes Teaching: Wound Center Dressing Your Wound -Person Taught Patient Patient -Teaching Method Discussion Discussion, Demonstration -Response to teaching Verbalize Verbalize understanding understanding WC - Visit Discharge Discharge Condition Stable Stable Ambulatory Status Ambulatory Ambulatory Transportation Private Auto Private Auto Accompanied by self self Medication Reconcilliation completed & No No provided to patient/care provider Clinical Summary of Care Provided Yes Yes Assessment/Plan Assessment/Plan (1) Non-pressure chronic ulcer of other part of right foot with fat layer exposed: CODE(S): L97.512 - Non-pressure chronic ulcer of other part of right foot with fat layer exposed PLAN: Patient examined evaluated, all findings as patient great detail. Awaiting vascular studies. Right hallux wound appears to be stable and noninfected at this time I recommend improved offloading to heal the wound. Patient has been inconsistent with use of surgical shoe and offloading pad. Planning for total contact casting once patient gets his vascular studies. He will continue surgical shoe with offloading pad. Patient was having some issues with his lumbar spine due to offset nature. Recommend getting an even up from our office. Wound was excisionally debrided down to including level of subcutaneous tissue of all nonviable tissue using a #15 blade without incident. Hemostasis obtained with light compression. No anesthesia due to neuropathy. Patient tolerated procedure well. Pre and postdebridement measurements document nursing notes. Recommend daily dressing with hydrogel and 4 x 4 with gauze tape. I have discussed in great detail the purpose of offloading the wound and how this will assist healing, patient will be more compliant moving forward. We will consider total contact casting or surgical intervention pending any delays. Follow-up in 1 week. Wound improved, follow up in 3 weeks. Continue offloading with surgical shoe and offloading pad. I will recommend TCC if no healing on follow up. (2) Peripheral vascular disease, unspecified: CODE(S): I73.9 - Peripheral vascular disease, unspecified
[2021-11-09 08:16] VITALS: BP 129/83; PULSE 104; RESP 16; TEMP 36.3; BMI 28.6
--- NOTE | 2021-11-09 09:52 | PCM.WC.PN ---
History of Present Illness Date of Service: 11/09/21 Progress of Wound: 81-year-old male with history of cardiovascular disease presents with a chronic right hallux wound. Patient notes improvement at this time. Patient offloading with cam walking boot and offloading pad. Patient denies constitutional's. Patient denies signs or symptoms of DVT. No new complaints at this time. Objective Data Objective Data Vital Signs: Vital Signs Temp Pulse Resp BP O2 Del Method 97.3 F L 104 H 16 129/83 H Room Air 11/09/21 08:16 11/09/21 08:16 11/09/21 08:16 11/09/21 08:16 11/09/21 08:16 Oxygen Delivery Method Room Air Weight: 83.007 kg Body Mass Index (BMI) 28.6 Physical Exam Narrative Patient alert oriented person place and time patient presents ambulating in normal shoe gear at this time. Vascular: Dorsalis pedis posterior tibial pulses 1 out of 4 bilaterally. Capillary fill time brisk to lesser digits. Absent digital hair growth atrophic skin changes noted. Neurologic light touch protective sensation diminished bilateral feet reestablish mid tibia. Dermatologic full-thickness wound to right plantar medial hallux. Postdebridement measurements document nursing notes are significant periwound callus no signs of infection deep probing or undermining at this time. Musculoskeletal: There is a hallux valgus deformity contributing to wound formation on the right lower extremity. No pain with calf squeeze muscular strength full to bilateral lower extremity compartments. Debridement Note Debridement Note Post-Debridement Measurements and Additional Note: Post-Debridement Measurements/Treatment WC - Nurse 1 - General Ulcer Assessment Start: 10/26/21 08:25 Freq: Status: Active Protocol: MARIAELENA Activity Type Activity Date Activity User E-sign Co-sign Detail Recorded Client Recorded Date Recorded By Document 10/26/21 08:25 DL [id number] 10/26/21 08:28 DL Edit Result 10/26/21 08:25 DL (1) [id number] 10/26/21 08:30 DL Document 11/02/21 08:09 AK [id number] 11/02/21 08:14 AK Document 11/09/21 08:16 BMF [id number] 11/09/21 08:19 BMF (1) Blood Pressure (90/60-120/80) 154/100 H => 142/93 H Blood Pressure Mean (mm Hg) 118 => 109 10/26/21 11/02/21 11/09/21 08:25 08:09 08:16 WC - Today's Visit Information Type of service Follow-up Visit Follow-up Visit Follow-up Visit (Physician/RESEARCH PROFESSOR OF BIOSTATISTICS (Physician/RESEARCH PROFESSOR OF BIOSTATISTICS (Physician/RESEARCH PROFESSOR OF BIOSTATISTICS ) ) ) Arrival Mode Ambulatory Ambulatory Ambulatory Transfer Assistance None None Patient Identification Verified (Name & Yes Yes Yes ) Patient Requires Transmission-Based No No No Precautions Safety Precautions NA NA Height and Weight Body Mass Index (BMI) 28.6 28.6 28.6 BMI Classification Overweight Overweight Overweight Vital Signs Temperature (97.8 F-99.1 F) 96.9 F L 97.1 F L 97.3 F L Temperature Source Temporal Temporal Temporal Pulse Rate (60-100) 103 H 106 H 104 H Pulse Location Monitor Monitor Monitor Respiratory Rate (12-18) 20 H 16 Respiratory rate source Observation Observation Oxygen Delivery Method Room Air Blood Pressure (90/60-120/80) 142/93 H 151/107 H 129/83 H Blood Pressure Mean (mm Hg) 109 121 98 Source Monitor Monitor Monitor Position Sitting Blood Pressure Location Left Arm History Since Last Visit- (Skip if this is Patient's initial visit) Have you changed medications since your No No No last visit? Any new allergies or adverse reactions No No No Had a fall/change in ADL's that may No No No increase risk of falls Signs or symptoms of abuse and/or No No No neglect since last visit Have you been in the hospital since your No No No last visit? Has dressing in place as prescribed Yes Yes Yes Has compression in place as prescribed Yes N/A N/A Has offloadiing in place as prescribed N/A N/A Experienced any changes in pain level or No No No management Left Footwear Regular Shoe Regular Shoe Regular Shoe Right Footwear Regular Shoe Regular Shoe Surgical Shoe with pressure relief insole Pain Scale: 0-10 Numeric Is Patient Pain Free? Yes Yes Yes WC - Nurse 1 - General Ulcer Measurement Start: 10/26/21 08:25 Freq: Status: Active Protocol: Activity Type Activity Date Activity User E-sign Co-sign Detail Recorded Client Recorded Date Recorded By Document 10/26/21 08:25 DL [id number] 10/26/21 08:28 DL Document 11/02/21 08:09 AK [id number] 11/02/21 08:14 AK Document 11/09/21 08:16 [facility] [id number] 11/09/21 08:19 BMF 10/26/21 11/02/21 11/09/21 08:25 08:09 08:16 Wound Center Nurse 1 #1- R PLANTAR HALLUX -Combined with other wound No No -Current Size (cm) - Length 0.3 0.6 0.7 -Current Size (cm) - Width 0.2 0.5 0.4 -Current Size (cm) - Depth 0.3 0.1 0.1 -Total Square Cm 0.06 0.30 0.28 -Date of Last Picture (Recall this 11/09/21 field) -Photo Taken No No Yes -Epithelialization None Present Small 1-33% -Tunneling No No -Undermining/Tunneling No No -Maximum Distance #2 (cm) 0.2 -Circular Undermining Yes No No -Change in Wound Grade/Stage No -Exudate Amt Medium Medium Small -Exudate Type Serosanguineous Serosanguineous Serous -Wound Margin Thickened Distinct, Distinct, Outline Outline Attached Attached -Granulation Amt Small (1-33%) Small (1-33%) Large (67-100%) -Granulation Quality Pale,Red [place] Red -Slough/Fibrin Yes Yes -Necrosis Amt Small (1-33%) Small (1-33%) Small (1-33%) -Necrotic Tissue Type Adherent Slough Adherent Slough -Structure Exposed N/A N/A -Texture (Neema-wound Skin Appearance) Callus,Scarring Assessed,Callus Callus -Moisture (Neema-wound Skin Appearance) Dry/Scaly No Abnormality, Assessed, Assessed Maceration,Dry/ Scaly -Color (Neema-wound Skin Appearance) No Abnormality No Abnormality, Assessed,Palor Assessed -Temperature (Neema-wound Skin No Abnormality No Abnormality No Abnormality Appearance) (Pt Warm) (Pt Warm) (Pt Warm) -Tenderness on Palpation (Neema-wound No No Skin Appearance) -Ulcer Cleansing Soap and Water Rinsed/ Rinsed/ Irrigated with Irrigated with Saline Saline -Foul Odor after Cleansing No No No -Anesthetic Used 5% Lidocaine 5% Lidocaine 5% Lidocaine Gel Gel Gel WC - Nurse 2 - General Ulcer CM Notes Start: 10/26/21 08:25 Freq: Status: Active Protocol: Activity Type Activity Date Activity User E-sign Co-sign Detail Recorded Client Recorded Date Recorded By Document 10/26/21 08:57 [id number] 10/26/21 09:02 Document 11/02/21 08:27 [id number] 11/02/21 08:31 Document 11/09/21 08:46 [id number] 11/09/21 08:48 10/26/21 11/02/21 11/09/21 08:57 08:27 08:46 Wound Center Nurse 2 #1- R PLANTAR HALLUX -Time 08:59 08:27 08:46 -Correct Patient Yes Yes Yes -Correct Side, Site, Position Yes Yes Yes -Correct Procedure Yes Yes Yes -Procedure Performed Yes Yes Yes -Type of Procedure Debridement Debridement Debridement -Clinical Debridement Subcutaneous Subcutaneous Subcutaneous -Tissue Removed Subcutaneous Subcutaneous Subcutaneous -Post Debridement (cm) - Length 1.7 0.7 0.8 -Post Debridement (cm) - Width 0.8 0.4 0.4 -Post Debridement (cm) - Depth 0.2 0.2 0.1 -Total Square (Post) (cm) 1.36 0.28 0.32 -Area of Debridement (cm) - Length 1.7 0.7 0.8 -Area of Debridement (cm) - Width 0.8 0.4 0.4 -Total Square (Area) (cm) 1.36 0.28 0.32 -Tunneling No No No -Undermining/Tunneling No No No -Circular Undermining No No No -Wound/Ulcer Outcome Not Healed Not Healed Not Healed -Ulcer Cleansing Rinsed/ Rinsed/ Rinsed/ Irrigated with Irrigated with Irrigated with Saline Saline Saline -Foul Odor after Cleansing No No No -Bioengineered Tissue No No No -Bleeding Controlled with Pressure,Silver Pressure Pressure Nitrate -Treatment Response Procedure Procedure Procedure Tolerated Well Tolerated Well Tolerated Well -Offloading Yes Yes Yes -Type of Offloading Surgical Shoe Surgical Shoe Camwalker -Debridement - Subq, 1st 20sq cm Yes Yes Yes Pain Scale: 0-10 Numeric Is Patient Pain Free? Yes Yes Yes WC - Nurse 3 - General Ulcer D/C NN Start: 10/26/21 08:25 Freq: Status: Active Protocol: Activity Type Activity Date Activity User E-sign Co-sign Detail Recorded Client Recorded Date Recorded By Document 10/26/21 09:10 MW Desktop 10/26/21 09:11 MW Document 11/02/21 08:37 MW [id number] 11/02/21 08:38 MW Document 11/09/21 08:56 AK [id number] 11/09/21 08:57 AK 10/26/21 11/02/21 11/09/21 09:10 08:37 08:56 Wound Care Nurse 3 #1- R PLANTAR HALLUX -Ulcer Cleansing Rinsed/ Rinsed/ Rinsed/ Irrigated with Irrigated with Irrigated with Saline Saline Saline -Foul Odor after Cleansing No No No -Negative Pressure Wound Therapy N/A N/A -Primary Dressing Applied Aquacel AG 4x4 Aquacel AG 2x2 Aquacel AG 2x2 -Other Dressing betadine betadine to wound edge -Primary Dressing Covered/Secured with Dry Gauze Dry Gauze, Dry Gauze, Secured with Secured with Tape Tape -Aquacel AG 4x4 1 -Aquacel AG 2x2 1 1 Treatment Response Procedure Procedure Tolerated Well Tolerated Well Pain Scale: 0-10 Numeric Is Patient Pain Free? Yes Yes Yes Teaching: Wound Center Dressing Your Wound -Person Taught Patient Patient -Teaching Method Discussion Discussion, Demonstration -Response to teaching Verbalize Verbalize understanding understanding WC - Visit Discharge Discharge Condition Stable Stable Stable Ambulatory Status Ambulatory Ambulatory Ambulatory Transportation Private Auto Private Auto Private Auto Accompanied by self self Medication Reconcilliation completed & No No Yes provided to patient/care provider Clinical Summary of Care Provided Yes Yes Yes Assessment/Plan Assessment/Plan (1) Non-pressure chronic ulcer of other part of right foot with fat layer exposed: CODE(S): L97.512 - Non-pressure chronic ulcer of other part of right foot with fat layer exposed PLAN: Patient examined evaluated, all findings as patient great detail. Awaiting vascular studies. Right hallux wound appears to be stable and noninfected at this time I recommend improved offloading to heal the wound. Patient has been inconsistent with use of surgical shoe and offloading pad. Planning for total contact casting once patient gets his vascular studies. He will continue surgical shoe with offloading pad. Patient was having some issues with his lumbar spine due to offset nature. Recommend getting an even up from our office. Wound was excisionally debrided down to including level of subcutaneous tissue of all nonviable tissue using a #15 blade without incident. Hemostasis obtained with light compression. No anesthesia due to neuropathy. Patient tolerated procedure well. Pre and postdebridement measurements document nursing notes. Recommend daily dressing with hydrogel and 4 x 4 with gauze tape. I have discussed in great detail the purpose of offloading the wound and how this will assist healing, patient will be more compliant moving forward. We will consider total contact casting or surgical intervention pending any delays. Follow-up in 1 week. Patient will continue offloading hallux with Cam boot. (2) Peripheral vascular disease, unspecified: CODE(S): I73.9 - Peripheral vascular disease, unspecified
== END 2021-11-17 23:59 | disposition home or self-care (01) ==
LOC: WC 08:15
PROVIDERS: PCP Family Medicine; Visit Provider Podiatrist
DX: L97.512 Non-pressure chronic ulcer of other part of right foot with fat layer exposed (principal); I73.9 Peripheral vascular disease, unspecified; Z82.49 Family history of ischemic heart disease and other diseases of the circulatory system
CPT/HCPCS: 11042

== ENCOUNTER 2021-12-10 07:41 | Emergency (ER) | payer MEDICARE, SELFPAY ==
[2021-12-10 07:41] VITALS: BP 159/101; PULSE 100; RESP 16; TEMP 36.6; O2SAT 95; BMI 27.6
--- NOTE | 2021-12-10 08:02 | EDS_ITS ---
HPI History of Present Illness Chief Complaint: Upper Extremity Injury Detail of Chief Complaint: Swelling and tightness right wrist and hand status post fall November 18 Informant: patient, spouse/S.O. and PCP Occured/Mechanism Mechanism/Context: Yes injury and Yes blunt trauma Comment: Patient states he had a fall. He injured his right upper extremity November 18. X-rays at that time were negative. He was sent in after nurse practitioner at outside facility read x-ray report of most recent x-ray. Onset/Context/Timing Context: Gradual Onset Timing: Continuous Location: Distal right forearm, wrist, hand and digits Current Severity: Mild Maximum Severity: Moderate Worsened by: Nothing per patient Relieved by: Nothing per patient Associated Symptoms Associated Symptoms: Negative for Parasthesia, Weakness or Loss of Funtion (Difficulty using fingers because of swelling) Narrative Narrative: Patient is a 81-year-old alrmk-mbwr-zkqczxyn male on Eliquis who presents with swelling of his right upper extremity as previously described. Received call from nurse practitioner Ally at outside facility. There was concern for pyogenic arthritis versus crystal induced arthritis because of the rapid worsening of the [employer] thiazide. He denies history of gout or pseudogout. He denies fever, chills night sweats. He denies pain in his elbow or wrist. He complains of his skin being tight. He is on Eliquis because of cardiac disease. States he had open heart surgery last year. He denies paresthesia or ane sthesia. He denies weakness. He does report difficulty using his hand because of the amount of swelling. Patient had a recent venous duplex study of the right upper extremity which was interpreted as negative from outside facility. This information was relayed to me by the nurse practitioner at outside facility, Ally. Tetanus Immunization: 5-10 years Prior similar symptoms: Yes Recent Illness/Hospitalization: Yes PFSH PFSH Home Medications apixaban 5 mg tablet (Eliquis) 5 mg PO BID 09/28/21 [History Last Taken Unknown] aspirin 81 mg capsule 81 mg PO DAILY 09/28/21 [History Last Taken Unknown] atorvastatin 40 mg tablet 40 mg PO QHS 09/28/21 [History Last Taken Unknown] furosemide 20 mg tablet 20 mg PO DAILY 09/28/21 [History Last Taken Unknown] hydrochlorothiazide 50 mg tablet 50 mg PO DAILY 09/28/21 [History Last Taken Un known] insulin glargine 100 unit/mL (3 mL) subcutaneous pen (Lantus Solostar U-100 Insulin) 24 unit subcut DAILY 09/28/21 [History Last Taken Unknown] metoprolol tartrate 50 mg tablet 75 mg PO BID 09/28/21 [History Last Taken Unknown] hshaxidvocwq-lceptanh-rtbokv tablet 1 tab PO DAILY 09/28/21 [History Last Taken Unknown] thiamine HCl (vitamin B1) 50 mg tablet 50 mg PO DAILY 09/28/21 [History Last Taken Unknown] diltiazem HCl 120 mg capsule,extended release 24 hr 120 mg PO DAILY 12/10/21 [History Last Taken Unknown] Allergy/AdvReac Type Severity Reaction Status Date / Time No Known Allergies Allergy Verified 09/28/21 08:00 Social History (Updated 12/10/21 @ 08:[address] Andres Nascimento MD) household members: spouse Smoking Status: Never smoker substance use type: does not use ROS ROS ED Constitutional Constitutional ED: Denies chills, fever(s), subjective, sweats or weight loss Eyes Eyes: Denies blurry vision, change in vision or diplopia ENT ENT ED: Denies ear pain, rhinorrhea or sore throat Cardiovascular Cardiovascular: Denies chest pain or palpitations Respiratory/Chest Respiratory/Chest: Denies cough, dyspnea or dyspnea on exertion Musculoskeletal Musculoskeletal: Reports other Details: Tightness and swelling right wrist, hand and digits ; Denies myalgias or neck pain Integumentary Reports other Details: Burned distal radial side of the right index finger. This occurred earlier this month. Neurologic Neurologic: Denies paresthesias or weakness Hematologic/Lymphatic Hematologic/Lymphatic: Denies easy bleeding or easy bruising EXAM Physical Exam Const Vital Signs: 12/10/21 07:41 Temperature 97.9 F Temperature Source Temporal Pulse Rate 100 Respiratory Rate 16 Blood Pressure 159/101 H Blood Pressure Mean 120 Pulse Ox 95 Oxygen Delivery Method Room Air Positive well nourished and well developed General Appearance ED: well developed and NAD HEENT Reports moist mucous membranes normocephalic and atraumatic Eyes PERRL and EOMs intact bilaterally Eyes Narrative: There is no scleral icterus. Conjunctive is pink. Neck full ROM and supple Neck Narrative: Trachea is midline. There is no JVD. Resp normal respiratory effort Cardio regular rate and regular rhythm Extremity full ROM; Negative for normal to inspection Extremity Narrative: There is swelling on the distal third of the right forearm to the tip of his digits. There is no pain ovation of the proximal humerus, lateral medial epicondyle, olecranon process or radial head. There is no pain with passive flexion or extension at the elbow or passive supination or pronation at the elbow. Furthermore there is no pain to palpation with passive flexion and extension as well as abduction and adduction at the wrist. There is significant edema. There is no fluctuance to suggest an effusion of the wrist. Capillary refill is normal. Sensation is normal in compared to digits of right hand and to digits of left hand. There is a burn noted distal tip of right index finger on the radial side. There is no evidence infection. Median, radial and ulnar function intact. Patient has pitting edema of the wrist and hand. There is no subungual hematoma noted. Neuro oriented x3, CN's II-XII intact bilaterally, moves all extremities, no focal motor deficits and no sensory deficits noted Psych mental status grossly normal Skin Skin Narrative: Burn as previously described. There is no lymphangitis. There is no erythema, warmth or induration. Rashes: no rashes MDM MDM MDM Narrative Medical decision making narrative: Patient for me he had a sleeve administered to him and told to use. He has not been using his extremity as much. With no fever or chills no pain with passive or active range of motion at the elbow or wrist doubt this to be pyogenic arthritis or crystal induced arthritis. Suspect this is dependent lymphedema. However because of report by radiologist at outside facility will obtain CBC to assess white count. And basic metabolic panel to assess renal function. Patient's lymphedema is due to nonuse/dependence. Will treat conservatively. Patient was informed of results. Lab Data Attestation: I reviewed the patient's lab results. Lab results narrative: CBC is unremarkable. Competence metabolic panel reveals a albumin of 2.9 which is low. Potassium is 3.1 which is low. Creatinine is elevated with a GFR 57. 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, Acute hypokalemia, Low serum albumin, Mild renal insufficiency Instructions: ED Peripheral Edema, Unilateral, ED Renal Insufficiency Prescriptions: No Action atorvastatin 40 mg Tablet 40 mg PO QHS hydrochlorothiazide 50 mg Tablet 50 mg PO DAILY metoprolol tartrate 50 mg Tablet 75 mg PO BID furosemide 20 mg Tablet 20 mg PO DAILY thiamine HCl (vitamin B1) 50 mg Tablet 50 mg PO DAILY Centrum Silver Tablet 1 tab PO DAILY insulin glargine [Lantus Solostar U-100 Insulin] 100 unit/mL (3 mL) Insulin Pen 24 unit SUBCUT DAILY Eliquis 5 mg Tablet 5 mg PO BID aspirin 81 mg Capsule 81 mg PO DAILY diltiazem HCl 120 mg capsule,extended release 24hr 120 mg PO DAILY Label Comments: take 1 capsule by mouth once daily Primary Care Provider: Junior Mendoza Referrals: Junior Mendoza MD [Primary Care Provider] - 3-5 Days if not improving Activity Restrictions/Additional Instructions: 1. You need to increase the use of your right hand and upper extremity 2. When you are sitting or not doing anything recommend raising your wrist above your nose is much as possible. 3. If you develop pain, discoloration or loss of use return to the emergency department immediately Disposition Disposition: Home, Self Care
[2021-12-10 08:13] LABS: Absolute Lymphocyte Count 2.04 X10^3/uL (0.83-4.51); Absolute Neutrophil Count 5.4 X10^3/uL (2.0-7.7); Basophil# 0.04 X10^3/uL; Basophil% 0.5 % (0-1); Eosinophil# 0.19 X10^3/uL; Eosinophils% 2.2 % (0-5); Hematocrit 43.7 % (40-54); Hemoglobin 14.7 g/dL (13.0-16.5); Lymphocyte # 2.04 X10^3/ul (0.83-4.51); Lymphocyte % 23.3 % (19-41); Mean Corp Hgb Conc 33.6 g/dL (32-36); Mean Corpuscular Hgb 32.1 pg (27.0-32.0); Mean Corpuscular Volume 95.4 fL (80-94); Mean Platelet Vol. 11.3 fl (6.2-12.0); Monocyte# 1.09 X10^3/uL; Monocyte% 12.4 % (0-10); NRBC Flagged by Analyzer 0 % (0-5); Neutrophil # 5.39 X10^3/uL (2.7-7.7); Neutrophil % 61.4 % (47-70); Platelet Count 241 K/mm3 (150-450); RBC Distribution Width CV 12.3 % (11.6-14.6); Red Blood Count 4.58 M/mm3 (4.6-6.2); White Blood Count 8.8 K/mm3 (4.4-11.0)
[2021-12-10 08:31] LABS: ALB/GLOB Ratio 0.6 RATIO (0.9-2.4); AST(SGOT) 14 U/L (15-37); Alanine Aminotransfer ALT/SGPT 22 U/L (16-61); Albumin, Serum 2.9 g/dL (3.2-5.0); Alkaline Phosphatase 112 U/L (45-117); Anion Gap 10 (5-15); BUN 31 mg/dL (7-18); BUN/Creat Ratio 23.7 RATIO (10-20); Calcium,Total 9.8 mg/dL (8.5-10.1); Chloride 101 mmol/L (98-107); Creatinine, Serum 1.31 mg/dL (0.70-1.30); EST Glomerular Filtration Rate 56 mL/min (>60); Est Glom Filt Rate - Afr Amer 68 mL/min (>60); Estimated Creatinine Clearance 42.75 ml/min; Globulin 4.5 g/dL (2.2-4.2); Glucose 250 mg/dL (74-106); Potassium 3.2 mmol/L (3.5-5.1); Protein, Total 7.4 g/dL (6.4-8.2); Sodium Level 142 mmol/L (136-145)
== END 2021-12-10 09:36 | disposition home or self-care (01) ==
PROVIDERS: Emergency Provider Emergency Medicine; PCP Family Medicine; Visit Provider Emergency Medicine
DX: I89.0 Lymphedema, not elsewhere classified (principal); E87.6 Hypokalemia; N28.9 Disorder of kidney and ureter, unspecified; M79.89 Other specified soft tissue disorders; Z74.09 Other reduced mobility; Z79.01 Long term (current) use of anticoagulants; Z79.82 Long term (current) use of aspirin
CPT/HCPCS: 80053; 85025; 99282

== ENCOUNTER 2021-12-14 11:00 | Outpatient (RCR) | payer MEDICARE, SELFPAY ==
[2021-11-18 00:36] VITALS: BP 129/83; PULSE 104; RESP 16; TEMP 36.3; BMI 28.6
[2021-11-30 08:17] VITALS: BP 112/64; PULSE 92; RESP 16; TEMP 35.4; BMI 28.6
--- NOTE | 2021-11-30 10:05 | PN.PCM_ITS ---
History of Present Illness Date of Service: 11/30/21 Progress of Wound: 81-year-old male with history of cardiovascular disease presents with a chronic right hallux wound. Patient notes improvement at this time. Patient offloading with cam walking boot and offloading pad. Patient denies constitutional's. Patient denies signs or symptoms of DVT. No new complaints at this time. Patient notes worsening of his big toe wound. Patient suffered a fall while wearing his cam boot. Patient discontinued this return to normal shoe gear. Patient denies any other issues at this time. Patient sprained his right wrist at that time. Objective Data Objective Data Vital Signs: Vital Signs Temp Pulse Resp BP O2 Del Method 95.8 F L 92 16 112/64 Room Air 11/30/21 08:17 11/30/21 08:17 11/30/21 08:17 11/30/21 08:17 11/30/21 08:17 Oxygen Delivery Method Room Air Weight: 83.007 kg Body Mass Index (BMI) 28.6 Physical Exam Narrative Patient alert oriented person place and time patient presents ambulating in normal shoe gear at this time. Vascular: Dorsalis pedis posterior tibial pulses 1 out of 4 bilaterally. Capillary fill time brisk to lesser digits. Absent digital hair growth atrophic skin changes noted. Neurologic light touch protective sensation diminished bilateral feet reesta blish mid tibia. Dermatologic full-thickness wound to right plantar medial hallux. Postdebridement measurements document nursing notes are significant periwound callus no signs of infection deep probing or undermining at this time. Wound slightly increased in size today. Musculoskeletal: There is a hallux valgus deformity contributing to wound formation on the right lower extremity. No pain with calf squeeze muscular strength full to bilateral lower extremity compartments. Debridement Note Debridement Note Post-Debridement Measurements and Additional Note: Post-Debridement Measurements/Treatment ADRIANNA - Nurse 1 - General Ulcer Assessment Start: 11/30/21 08:17 Freq: Status: Active Protocol: MARIAELENA Activity Type Activity Date Activity User E-sign Co-sign Detail Recorded Client Recorded Date Recorded By Document 11/30/21 08:17 DENISE [id number] 11/30/21 08:21 MW 11/30/21 08:17 - Today's Visit Information Type of service Follow-up Visit (Physician/GRAIN WEIGHER ) Arrival Mode Ambulatory Transfer Assistance None Accompanied by self Patient Identification Verified (Name & Yes ) Patient Requires Transmission-Based No Precautions Safety Precautions NA Height and Weight Body Mass Index (BMI) 28.6 BMI Classification Overweight Vital Signs Temperature (97.8 F-99.1 F) 95.8 F L Temperature Source Temporal Pulse Rate (60-100) 92 Pulse Location Monitor Respiratory Rate (12-18) 16 Respiratory rate source Observation Oxygen Delivery Method Room Air Blood Pressure (90/60-120/80) 112/64 Blood Pressure Mean (mm Hg) 80 Source Monitor Position Sitting Blood Pressure Location Left Arm History Since Last Visit- (Skip if this is Patient's initial visit) Have you changed medications since your No last visit? Any new allergies or adverse reactions No Had a fall/change in ADL's that may No increase risk of falls Signs or symptoms of abuse and/or No neglect since last visit Have you been in the hospital since your No last visit? Has dressing in place as prescribed Yes Has compression in place as prescribed N/A Has offloadiing in place as prescribed N/A Experienced any changes in pain level or No management Left Footwear Regular Shoe Right Footwear Regular Shoe Pain Scale: 0-10 Numeric Is Patient Pain Free? Yes WC - Nurse 1 - General Ulcer Measurement Start: 11/30/21 08:17 Freq: Status: Active Protocol: Activity Type Activity Date Activity User E-sign Co-sign Detail Recorded Client Recorded Date Recorded By Document 11/30/21 08:17 [id number] 11/30/21 08:21 MW 11/30/21 08:17 Wound Center Nurse 1 #1- R PLANTAR HALLUX -Combined with other wound No -Current Size (cm) - Length 0.8 -Current Size (cm) - Width 0.3 -Current Size (cm) - Depth 0.4 -Total Square Cm 0.24 -Photo Taken No -Epithelialization None Present -Tunneling No -Undermining/Tunneling No -Circular Undermining No -Exudate Amt Medium -Exudate Type Serosanguineous -Wound Margin Flat & Intact -Granulation Amt Small (1-33%) -Granulation Quality [place] -Slough/Fibrin Yes -Necrosis Amt Large (67-100%) -Necrotic Tissue Type Adherent Slough -Structure Exposed N/A -Texture (Neema-wound Skin Appearance) Assessed,Callus ,Localized Edema -Moisture (Neema-wound Skin Appearance) Assessed -Color (Neema-wound Skin Appearance) Assessed -Temperature (Neema-wound Skin No Abnormality Appearance) (Pt Warm) -Tenderness on Palpation (Neema-wound No Skin Appearance) -Ulcer Cleansing Soap and Water -Foul Odor after Cleansing Yes -Anesthetic Used 5% Lidocaine Gel Lower Limb Edema Present Yes Right Calf (cm) 37.2 Right Ankle (cm) 27.3 WC - Nurse 2 - General Ulcer CM Notes Start: 11/30/21 08:17 Freq: Status: Active Protocol: Activity Type Activity Date Activity User E-sign Co-sign Detail Recorded Client Recorded Date Recorded By Document 11/30/21 08:30 MARK [id number] 11/30/21 08:32 MARK Edit Result 11/30/21 08:30 JF (1) [id number] 11/30/21 08:35 JF (1) #1- R PLANTAR HALLUX - Post Debridement (cm) - Length 0.8 => 1.4 - Post Debridement (cm) - Width 0.4 => 1.2 - Total Square (Post) (cm) 0.32 => 1.68 - Area of Debridement (cm) - Length 0.8 => 1.4 - Area of Debridement (cm) - Width 0.4 => 1.2 - Total Square (Area) (cm) 0.32 => 1.68 11/30/21 08:30 Wound Center Nurse 2 #1- R PLANTAR HALLUX -Time 08:30 -Correct Patient Yes -Correct Side, Site, Position Yes -Correct Procedure Yes -Procedure Performed Yes -Type of Procedure Debridement -Clinical Debridement Subcutaneous -Tissue Removed Subcutaneous -Post Debridement (cm) - Length 1.4 -Post Debridement (cm) - Width 1.2 -Post Debridement (cm) - Depth 0.2 -Total Square (Post) (cm) 1.68 -Area of Debridement (cm) - Length 1.4 -Area of Debridement (cm) - Width 1.2 -Total Square (Area) (cm) 1.68 -Tunneling No -Undermining/Tunneling No -Circular Undermining No -Wound/Ulcer Outcome Not Healed -Ulcer Cleansing Rinsed/ Irrigated with Saline -Foul Odor after Cleansing No -Bioengineered Tissue No -Bleeding Controlled with Pressure -Treatment Response Procedure Tolerated Well -Offloading No -Debridement - Subq, 1st 20sq cm Yes Pain Scale: 0-10 Numeric Is Patient Pain Free? Yes - Nurse 3 - General Ulcer D/C NN Start: 11/30/21 08:17 Freq: Status: Active Protocol: Activity Type Activity Date Activity User E-sign Co-sign Detail Recorded Client Recorded Date Recorded By Document 11/30/21 08:42 [facility] [id number] 11/30/21 08:42 [facility] 11/30/21 08:42 Wound Care Nurse 3 #1- R PLANTAR HALLUX -Ulcer Cleansing Rinsed/ Irrigated with Saline -Foul Odor after Cleansing No -Primary Dressing Applied Aquacel AG 2x2 -Primary Dressing Covered/Secured with Dry Gauze, Secured with Tape -Aquacel AG 2x2 1 Treatment Response Procedure Tolerated Well Pain Scale: 0-10 Numeric Is Patient Pain Free? Yes - Visit Discharge Discharge Condition Stable Ambulatory Status Ambulatory Transportation Private Auto Assessment/Plan Assessment/Plan (1) Non-pressure chronic ulcer of other part of right foot with fat layer exposed: CODE(S): L97.512 - Non-pressure chronic ulcer of other part of right foot with fat layer exposed PLAN: Patient examined evaluated, all findings as patient great detail. Noninvasive arterial studies reviewed. These demonstrate a normal finding. No concerns for macro or microvascular disease that may limit wound healing. Right hallux wound appears to be stable and noninfected at this time I recommend improved offloading to heal the wound. Patient has been inconsistent with use of surgical shoe and offloading pad. Patient will return to surgical shoe with reverse Aquino's extension offloading pad. Patient felt unstable in the cam walking boot and suffered 1 fall. We will consider total contact casting versus complete nonweightbearing versus hallux IPJ arthroplasty to adequately offload the wound site. Recommend daily dressing with silver alginate and 4 x 4 with gauze tape. I have discussed in great detail the purpose of offloading the wound and how this will assist healing, patient will be more compliant moving forward. We will consider total contact casting or surgical intervention pending any delays. Follow-up in 1 week. (2) Peripheral vascular disease, unspecified: CODE(S): I73.9 - Peripheral vascular disease, unspecified
[2021-12-07 11:17] VITALS: BP 143/94; PULSE 95; RESP 18; TEMP 36.2; BMI 28.6
--- NOTE | 2021-12-07 11:32 | WC ---
pt right arm below elbow edematous. Pt states it has been like this for [address] Romero and Cinthya 'RN made aware
--- NOTE | 2021-12-07 11:51 | PN.PCM_ITS ---
History of Present Illness Date of Service: 12/07/21 Progress of Wound: 81-year-old male with history of cardiovascular disease presents with a chronic right hallux wound. Patient notes improvement at this time. Patient offloading with cam walking boot and offloading pad. Patient denies constitutional's. Patient denies signs or symptoms of DVT. No new complaints at this time. Patient notes worsening of his big toe wound. Patient suffered a fall while wearing his cam boot. Patient discontinued this return to normal shoe gear. Patient denies any other issues at this time. Patient sprained his right wrist at that time. Objective Data Objective Data Vital Signs: Vital Signs Temp Pulse Resp BP O2 Del Method 97.2 F L 95 18 143/94 H Room Air 12/07/21 11:17 12/07/21 11:17 12/07/21 11:17 12/07/21 11:17 11/30/21 08:17 Oxygen Delivery Method Room Air Weight: 83.007 kg Body Mass Index (BMI) 28.6 Physical Exam Narrative Patient alert oriented person place and time patient presents ambulating in normal shoe gear at this time. Vascular: Dorsalis pedis posterior tibial pulses 1 out of 4 bilaterally. Capillary fill time brisk to lesser digits. Absent digital hair growth atrophic skin changes noted. Neurologic light touch protective sensation diminished bilateral feet reest ablish mid tibia. Dermatologic full-thickness wound to right plantar medial hallux. Postdebridement measurements document nursing notes are significant periwound callus no signs of infection deep probing or undermining at this time. Wound slightly increased in size today. Musculoskeletal: There is a hallux valgus deformity contributing to wound formation on the right lower extremity. No pain with calf squeeze muscular strength full to bilateral lower extremity compartments. Debridement Note Debridement Note Post-Debridement Measurements and Additional Note: Post-Debridement Measurements/Treatment WC - Nurse 1 - General Ulcer Assessment Start: 11/30/21 08:17 Freq: Status: Active Protocol: MARIAELENA Activity Type Activity Date Activity User E-sign Co-sign Detail Recorded Client Recorded Date Recorded By Document 11/30/21 08:17 MW [id number] 11/30/21 08:21 MW Document 12/07/21 11:17 RB [id number] 12/07/21 11:19 RB 11/30/21 12/07/21 08:17 11:17 - Today's Visit Information Type of service Follow-up Visit Follow-up Visit (Physician/ADVANCED MANUFACTURING VICE PRESIDENT (Physician/ADVANCED MANUFACTURING VICE PRESIDENT ) ) Arrival Mode Ambulatory Ambulatory Transfer Assistance None None Accompanied by self Patient Identification Verified (Name & Yes Yes ) Patient Requires Transmission-Based No No Precautions Safety Precautions NA Height and Weight Body Mass Index (BMI) 28.6 28.6 BMI Classification Overweight Overweight Vital Signs Temperature (97.8 F-99.1 F) 95.8 F L 97.2 F L Temperature Source Temporal Temporal Pulse Rate (60-100) 92 95 Pulse Location Monitor Monitor Respiratory Rate (12-18) 16 18 Respiratory rate source Observation Observation Oxygen Delivery Method Room Air Blood Pressure (90/60-120/80) 112/64 143/94 H Blood Pressure Mean (mm Hg) 80 110 Source Monitor Monitor Position Sitting Semi-Fowlers Blood Pressure Location Left Arm Left Arm History Since Last Visit- (Skip if this is Patient's initial visit) Have you changed medications since your No No last visit? Any new allergies or adverse reactions No No Had a fall/change in ADL's that may No No increase risk of falls Signs or symptoms of abuse and/or No No neglect since last visit Have you been in the hospital since your No No last visit? Has dressing in place as prescribed Yes Yes Has compression in place as prescribed N/A No Has offloadiing in place as prescribed N/A No Experienced any changes in pain level or No No management Left Footwear Regular Shoe Right Footwear Regular Shoe Pain Scale: 0-10 Numeric Is Patient Pain Free? Yes Yes - Nurse 1 - General Ulcer Measurement Start: 11/30/21 08:17 Freq: Status: Active Protocol: Activity Type Activity Date Activity User E-sign Co-sign Detail Recorded Client Recorded Date Recorded By Document 11/30/21 08:17 MW [id number] 11/30/21 08:21 MW Document 12/07/21 11:17 RB [id number] 12/07/21 11:19 RB 11/30/21 12/07/21 08:17 11:17 Wound Center Nurse 1 #1- R PLANTAR HALLUX -Combined with other wound No No -Current Size (cm) - Length 0.8 1 -Current Size (cm) - Width 0.3 0.5 -Current Size (cm) - Depth 0.4 0.1 -Total Square Cm 0.24 0.5 -Photo Taken No -Epithelialization None Present -Tunneling No No -Undermining/Tunneling No No -Circular Undermining No No -Exudate Amt Medium Small -Exudate Type Serosanguineous Serosanguineous -Wound Margin Flat & Intact Distinct, Outline Attached -Granulation Amt Small (1-33%) Medium (34-66%) -Granulation Quality [place] -Slough/Fibrin Yes Yes -Necrosis Amt Large (67-100%) Medium (34-66%) -Necrotic Tissue Type Adherent Slough -Structure Exposed N/A N/A -Texture (Neema-wound Skin Appearance) Assessed,Callus Assessed,Callus ,Localized Edema -Moisture (Neema-wound Skin Appearance) Assessed Assessed,Dry/ Scaly -Color (Neema-wound Skin Appearance) Assessed Assessed -Temperature (Neema-wound Skin No Abnormality No Abnormality Appearance) (Pt Warm) (Pt Warm) -Tenderness on Palpation (Neema-wound No No Skin Appearance) -Ulcer Cleansing Soap and Water Rinsed/ Irrigated with Saline -Foul Odor after Cleansing Yes No -Anesthetic Used 5% Lidocaine 5% Lidocaine Gel Gel Lower Limb Edema Present Yes Right Calf (cm) 37.2 Right Ankle (cm) 27.3 WC - Nurse 2 - General Ulcer CM Notes Start: 11/30/21 08:17 Freq: Status: Active Protocol: Activity Type Activity Date Activity User E-sign Co-sign Detail Recorded Client Recorded Date Recorded By Document 11/30/21 08:30 MARK [id number] 11/30/21 08:32 MARK Edit Result 11/30/21 08:30 MARK (1) [id number] 11/30/21 08:35 MARK (1) #1- R PLANTAR HALLUX - Post Debridement (cm) - Length 0.8 => 1.4 - Post Debridement (cm) - Width 0.4 => 1.2 - Total Square (Post) (cm) 0.32 => 1.68 - Area of Debridement (cm) - Length 0.8 => 1.4 - Area of Debridement (cm) - Width 0.4 => 1.2 - Total Square (Area) (cm) 0.32 => 1.68 11/30/21 08:30 Wound Center Nurse 2 -Time 08:30 -Correct Patient Yes -Correct Side, Site, Position Yes -Correct Procedure Yes -Procedure Performed Yes -Type of Procedure Debridement -Clinical Debridement Subcutaneous -Tissue Removed Subcutaneous -Post Debridement (cm) - Length 1.4 -Post Debridement (cm) - Width 1.2 -Post Debridement (cm) - Depth 0.2 -Total Square (Post) (cm) 1.68 -Area of Debridement (cm) - Length 1.4 -Area of Debridement (cm) - Width 1.2 -Total Square (Area) (cm) 1.68 -Tunneling No -Undermining/Tunneling No -Circular Undermining No -Wound/Ulcer Outcome Not Healed -Ulcer Cleansing Rinsed/ Irrigated with Saline -Foul Odor after Cleansing No -Bioengineered Tissue No -Bleeding Controlled with Pressure -Treatment Response Procedure Tolerated Well -Offloading No -Debridement - Subq, 1st 20sq cm Yes Pain Scale: 0-10 Numeric Is Patient Pain Free? Yes - Nurse 3 - General Ulcer D/C NN Start: 11/30/21 08:17 Freq: Status: Active Protocol: Activity Type Activity Date Activity User E-sign Co-sign Detail Recorded Client Recorded Date Recorded By Document 11/30/21 08:42 [facility] [id number] 11/30/21 08:42 [facility] 11/30/21 08:42 Wound Care Nurse 3 #1- R PLANTAR HALLUX -Ulcer Cleansing Rinsed/ Irrigated with Saline -Foul Odor after Cleansing No -Primary Dressing Applied Aquacel AG 2x2 -Primary Dressing Covered/Secured with Dry Gauze, Secured with Tape -Aquacel AG 2x2 1 Treatment Response Procedure Tolerated Well Pain Scale: 0-10 Numeric Is Patient Pain Free? Yes WC - Visit Discharge Discharge Condition Stable Ambulatory Status Ambulatory Transportation Private Auto Assessment/Plan Assessment/Plan (1) Non-pressure chronic ulcer of other part of right foot with fat layer exposed: CODE(S): L97.512 - Non-pressure chronic ulcer of other part of right foot with fat layer exposed PLAN: Patient examined evaluated, all findings as patient great detail. Noninvasive arterial studies reviewed. These demonstrate a normal finding. No concerns for macro or microvascular disease that may limit wound healing. Right hallux wound appears to be stable and noninfected at this time I recommend improved offloading to heal the wound. Patient has been inconsistent with use of surgical shoe and offloading pad. Patient will return to surgical shoe with reverse Aquino's extension offloading pad. Patient felt unstable in the cam walking boot and suffered 1 fall. 18 mm epi fix graft applied to the hallux ulceration. All graft use no waste. This was used per data reporting analyst's guidelines and anterior using overlying Adaptic and Steri-Strips followed by DSD. Patient will change this to every third day and keep the underlying Adaptic intact. Patient suffered a right wrist injury 2 weeks ago which time he was seen in the urgent care and they diagnosed him with a sprain. He has noticed increased swelling of recommended that he follows up with his primary care doctor. Patient notes they will call his doctor today. I have discussed in great detail the purpose of offloading the wound and how this will assist healing, patient will be more compliant moving forward. We will consider total contact casting or surgical intervention pending any delays. Follow-up in 1 week. (2) Peripheral vascular disease, unspecified: CODE(S): I73.9 - Peripheral vascular disease, unspecified
--- NOTE | 2021-12-07 12:03 | WC ---
pt right lower arm size D tubigrip applied per Dr Heather foley
[2021-12-14 11:01] VITALS: BP 139/87; PULSE 93; RESP 16; TEMP 36.2; BMI 28.6
--- NOTE | 2021-12-14 12:13 | PCM.WC.PN ---
History of Present Illness Date of Service: 12/14/21 Progress of Wound: 81-year-old male with history of cardiovascular disease presents with a chronic right hallux wound. Patient notes improvement at this time. Patient offloading with cam walking boot and offloading pad. Patient denies constitutional's. Patient denies signs or symptoms of DVT. No new complaints at this time. Patient notes worsening of his big toe wound. Patient suffered a fall while wearing his cam boot. Patient discontinued this return to normal shoe gear. Patient denies any other issues at this time. Patient sprained his right wrist at that time. Objective Data Objective Data Vital Signs: Vital Signs Temp Pulse Resp BP O2 Del Method 97.1 F L 93 16 139/87 H Room Air 12/14/21 11:01 12/14/21 11:01 12/14/21 11:01 12/14/21 11:01 12/14/21 11:01 Oxygen Delivery Method Room Air Weight: 83.007 kg Body Mass Index (BMI) 28.6 Physical Exam Narrative Patient alert oriented person place and time patient presents ambulating in normal shoe gear at this time. Vascular: Dorsalis pedis posterior tibial pulses 1 out of 4 bilaterally. Capillary fill time brisk to lesser digits. Absent digital hair growth atrophic skin changes noted. Neurologic light touch protective sensation diminished bilateral feet reestablish mid tibia. Dermatologic full-thickness wound to right plantar medial hallux. Postdebridement measurements document nursing notes are significant periwound callus no signs of infection deep probing or undermining at this time. Wound slightly increased in size today. Musculoskeletal: There is a hallux valgus deformity contributing to wound formation on the right lower extremity. No pain with calf squeeze muscular strength full to bilateral lower extremity compartments. Debridement Note Debridement Note Post-Debridement Measurements and Additional Note: Post-Debridement Measurements/Treatment WC - Nurse 1 - General Ulcer Assessment Start: 11/30/21 08:17 Freq: Status: Active Protocol: MARIAELENA Activity Type Activity Date Activity User E-sign Co-sign Detail Recorded Client Recorded Date Recorded By Document 11/30/21 08:17 MW [id number] 11/30/21 08:21 MW Document 12/07/21 11:17 RB [id number] 12/07/21 11:19 RB Document 12/14/21 11:01 BMF [id number] 12/14/21 11:10 [facility] 11/30/21 12/07/21 12/14/21 08:17 11:17 11:01 - Today's Visit Information Type of service Follow-up Visit Follow-up Visit Follow-up Visit (Physician/HEAD ATHLETIC TRAINER/STRENGTH COACH (Physician/HEAD ATHLETIC TRAINER/STRENGTH COACH (Physician/HEAD ATHLETIC TRAINER/STRENGTH COACH ) ) ) Arrival Mode Ambulatory Ambulatory Ambulatory Transfer Assistance None None None Accompanied by self Patient Identification Verified (Name & Yes Yes Yes ) Patient Requires Transmission-Based No No No Precautions Safety Precautions NA Height and Weight Body Mass Index (BMI) 28.6 28.6 28.6 BMI Classification Overweight Overweight Overweight Vital Signs Temperature (97.8 F-99.1 F) 95.8 F L 97.2 F L 97.1 F L Temperature Source Temporal Temporal Temporal Pulse Rate (60-100) 92 95 93 Pulse Location Monitor Monitor Monitor Respiratory Rate (12-18) 16 18 16 Respiratory rate source Observation Observation Observation Oxygen Delivery Method Room Air Room Air Blood Pressure (90/60-120/80) 112/64 143/94 H 139/87 H Blood Pressure Mean (mm Hg) 80 110 104 Source Monitor Monitor Monitor Position Sitting Semi-Fowlers Sitting Blood Pressure Location Left Arm Left Arm Left Arm History Since Last Visit- (Skip if this is Patient's initial visit) Have you changed medications since your No No No last visit? Any new allergies or adverse reactions No No No Had a fall/change in ADL's that may No No No increase risk of falls Signs or symptoms of abuse and/or No No No neglect since last visit Have you been in the hospital since your No No No last visit? Has dressing in place as prescribed Yes Yes Yes Has compression in place as prescribed N/A No N/A Has offloadiing in place as prescribed N/A No N/A Experienced any changes in pain level or No No No management Left Footwear Regular Shoe Regular Shoe Right Footwear Regular Shoe Regular Shoe Pain Scale: 0-10 Numeric Is Patient Pain Free? Yes Yes Yes - Nurse 1 - General Ulcer Measurement Start: 11/30/21 08:17 Freq: Status: Active Protocol: Activity Type Activity Date Activity User E-sign Co-sign Detail Recorded Client Recorded Date Recorded By Document 11/30/21 08:17 [id number] 11/30/21 08:21 MW Document 12/07/21 11:17 RB [id number] 12/07/21 11:19 RB Document 12/14/21 11:01 BM [id number] 12/14/21 11:10 BMF 11/30/21 12/07/21 12/14/21 08:17 11:17 11:01 Wound Center Nurse 1 #1- R PLANTAR HALLUX -Combined with other wound No No No -Current Size (cm) - Length 0.8 1 0.2 -Current Size (cm) - Width 0.3 0.5 0.2 -Current Size (cm) - Depth 0.4 0.1 0.3 -Total Square Cm 0.24 0.5 0.04 -Date of Last Picture (Recall this 12/14/21 field) -Photo Taken No Yes -Epithelialization None Present None Present -Tunneling No No No -Undermining/Tunneling No No No -Circular Undermining No No No -Exudate Amt Medium Small Small -Exudate Type Serosanguineous Serosanguineous Sanguineous -Wound Margin Flat & Intact Distinct, Distinct, Outline Outline Attached Attached -Granulation Amt Small (1-33%) Medium (34-66%) Medium (34-66%) -Granulation Quality Caspar Caspar Red -Slough/Fibrin Yes Yes Yes -Necrosis Amt Large (67-100%) Medium (34-66%) Medium (34-66%) -Necrotic Tissue Type Adherent Slough Eschar -Structure Exposed N/A N/A -Texture (Neema-wound Skin Appearance) Assessed,Callus Assessed,Callus Assessed,Callus ,Localized ,Scarring Edema -Moisture (Neema-wound Skin Appearance) Assessed Assessed,Dry/ Assessed,Dry/ Scaly Scaly -Color (Neema-wound Skin Appearance) Assessed Assessed Assessed -Temperature (Neema-wound Skin No Abnormality No Abnormality No Abnormality Appearance) (Pt Warm) (Pt Warm) (Pt Warm) -Tenderness on Palpation (Neema-wound No No No Skin Appearance) -Ulcer Cleansing Soap and Water Rinsed/ Soap and Water Irrigated with Saline -Foul Odor after Cleansing Yes No No -Anesthetic Used 5% Lidocaine 5% Lidocaine 5% Lidocaine Gel Gel Gel Lower Limb Edema Present Yes Right Calf (cm) 37.2 Right Ankle (cm) 27.3 WC - Nurse 2 - General Ulcer CM Notes Start: 11/30/21 08:17 Freq: Status: Active Protocol: Activity Type Activity Date Activity User E-sign Co-sign Detail Recorded Client Recorded Date Recorded By Document 11/30/21 08:30 [id number] 11/30/21 08:32 JF Edit Result 11/30/21 08:30 JF (1) [id number] 11/30/21 08:35 Document 12/07/21 11:49 [id number] 12/07/21 11:52 Document 12/14/21 11:54 [id number] 12/14/21 12:03 (1) #1- R PLANTAR HALLUX - Post Debridement (cm) - Length 0.8 => 1.4 - Post Debridement (cm) - Width 0.4 => 1.2 - Total Square (Post) (cm) 0.32 => 1.68 - Area of Debridement (cm) - Length 0.8 => 1.4 - Area of Debridement (cm) - Width 0.4 => 1.2 - Total Square (Area) (cm) 0.32 => 1.68 11/30/21 12/07/21 12/14/21 08:30 11:49 11:54 Wound Center Nurse 2 #1- R PLANTAR HALLUX -Time 08:30 11:50 11:55 -Correct Patient Yes Yes Yes -Correct Side, Site, Position Yes Yes Yes -Correct Procedure Yes Yes Yes -Procedure Performed Yes Yes Yes -Type of Procedure Debridement Debridement Debridement -Clinical Debridement Subcutaneous Subcutaneous Subcutaneous -Tissue Removed Subcutaneous Subcutaneous Subcutaneous -Post Debridement (cm) - Length 1.4 1.0 0.2 -Post Debridement (cm) - Width 1.2 0.6 0.4 -Post Debridement (cm) - Depth 0.2 0.1 0.2 -Total Square (Post) (cm) 1.68 0.60 0.08 -Area of Debridement (cm) - Length 1.4 1.0 0.2 -Area of Debridement (cm) - Width 1.2 0.6 0.4 -Total Square (Area) (cm) 1.68 0.60 0.08 -Tunneling No No No -Undermining/Tunneling No No No -Circular Undermining No No No -Wound/Ulcer Outcome Not Healed Not Healed Not Healed -Ulcer Cleansing Rinsed/ Rinsed/ Rinsed/ Irrigated with Irrigated with Irrigated with Saline Saline Saline -Foul Odor after Cleansing No No No -Bioengineered Tissue No Yes Yes -Type of Bioengineered Tissue Epifix 18mm Epifix 18mm Disc Disc -Expiration Date 08/18/26 08/18/26 -Product Lot Number [id number] -Percent Used 100 100 -Lot number of Saline Used [id number] -Bleeding Controlled with Pressure Pressure Pressure -Treatment Response Procedure Procedure Procedure Tolerated Well Tolerated Well Tolerated Well -Offloading No Yes Yes -Type of Offloading Surgical Shoe Surgical Shoe -Debridement - Subq, 1st 20sq cm Yes No No -Apply Skin Sub - 1st 25 sq cm - Feet 1 1 -Epifix 18mm Disc 3 3 Pain Scale: 0-10 Numeric Is Patient Pain Free? Yes Yes Yes - Nurse 3 - General Ulcer D/C NN Start: 11/30/21 08:17 Freq: Status: Active Protocol: Activity Type Activity Date Activity User E-sign Co-sign Detail Recorded Client Recorded Date Recorded By Document 11/30/21 08:42 [facility] [id number] 11/30/21 08:42 [facility] Document 12/07/21 11:55 [facility] [id number] 12/07/21 11:56 [facility] Document 12/14/21 12:07 [id number] 12/14/21 12:09 MW 11/30/21 12/07/21 12/14/21 08:42 11:55 12:07 Wound Care Nurse 3 #1- R PLANTAR HALLUX -Ulcer Cleansing Rinsed/ Not Cleansed Irrigated with Saline -Foul Odor after Cleansing No No -Negative Pressure Wound Therapy N/A -Primary Dressing Applied Aquacel AG 2x2 -Other Dressing epifix -Primary Dressing Covered/Secured with Dry Gauze, Dry Gauze, Dry Gauze, Secured with Secured with Secured with Tape Tape Tape -Other Covering drsg per rb rn -Aquacel AG 2x2 1 Treatment Response Procedure Procedure Procedure Tolerated Well Tolerated Well Tolerated Well Pain Scale: 0-10 Numeric Is Patient Pain Free? Yes Yes Yes Teaching: Wound Center Dressing Your Wound -Person Taught Patient -Teaching Method Discussion -Response to teaching Verbalize understanding WC - Visit Discharge Discharge Condition Stable Stable Stable Ambulatory Status Ambulatory Ambulatory Ambulatory Transportation Private Auto Private Auto Private Auto Accompanied by Medication Reconcilliation completed & No provided to patient/care provider Clinical Summary of Care Provided Yes Notes: DRESSING APPLIED PER Long SEARS LPN. Assessment/Plan Assessment/Plan (1) Non-pressure chronic ulcer of other part of right foot with fat layer exposed: CODE(S): L97.512 - Non-pressure chronic ulcer of other part of right foot with fat layer exposed PLAN: Patient examined evaluated, all findings as patient great detail. Noninvasive arterial studies reviewed. These demonstrate a normal finding. No concerns for macro or microvascular disease that may limit wound healing. Right hallux wound appears to be stable and noninfected at this time I recommend improved offloading to heal the wound. Patient has been inconsistent with use of surgical shoe and offloading pad. Patient will return to surgical shoe with reverse Aquino's extension offloading pad. Patient felt unstable in the cam walking boot and suffered 1 fall. 18 mm epi fix graft applied to the hallux ulceration. All graft use no waste. This was used per manager channel's guidelines and anterior using overlying Adaptic and Steri-Strips followed by DSD. Patient will change this to every third day and keep the underlying Adaptic intact. Patient suffered a right wrist injury 2 weeks ago which time he was seen in the urgent care and they diagnosed him with a sprain. He has noticed increased swelling of recommended that he follows up with his primary care doctor. Patient notes they will call his doctor today. I have discussed in great detail the purpose of offloading the wound and how this will assist healing, patient will be more compliant moving forward. We will consider total contact casting or surgical intervention pending any delays. Follow-up in 1 week. (2) Peripheral vascular disease, unspecified: CODE(S): I73.9 - Peripheral vascular disease, unspecified
== END 2021-12-17 23:59 | disposition home or self-care (01) ==
LOC: WC 11:00
PROVIDERS: PCP Family Medicine; Visit Provider Podiatrist
DX: I73.9 Peripheral vascular disease, unspecified (principal); L97.512 Non-pressure chronic ulcer of other part of right foot with fat layer exposed
CPT/HCPCS: 11042; 15275; Q4186

== ENCOUNTER 2022-01-11 11:15 | Outpatient (RCR) | payer MEDICARE, SELFPAY ==
[2021-12-18 01:27] VITALS: BP 139/87; PULSE 93; RESP 16; TEMP 36.2; BMI 28.6
[2021-12-21 11:05] VITALS: BP 135/73; PULSE 67; RESP 16; TEMP 36.3; BMI 28.6
--- NOTE | 2021-12-21 11:22 | PCM.WC.PN ---
History of Present Illness Date of Service: 12/21/21 Progress of Wound: 81-year-old male with history of cardiovascular disease presents with a chronic right hallux wound. Patient notes improvement at this time. Patient offloading with cam walking boot and offloading pad. Patient denies constitutional's. Patient denies signs or symptoms of DVT. No new complaints at this time. Patient notes worsening of his big toe wound. Patient suffered a fall while wearing his cam boot. Patient discontinued this return to normal shoe gear. Patient denies any other issues at this time. Patient sprained his right wrist at that time. Objective Data Objective Data Vital Signs: Vital Signs Temp Pulse Resp BP O2 Del Method 97.3 F L 67 16 135/73 H Room Air 12/21/21 11:05 12/21/21 11:05 12/21/21 11:05 12/21/21 11:05 12/21/21 11:05 Oxygen Delivery Method Room Air Weight: 83.007 kg Body Mass Index (BMI) 28.6 Physical Exam Narrative Patient alert oriented person place and time patient presents ambulating in normal shoe gear at this time. Vascular: Dorsalis pedis posterior tibial pulses 1 out of 4 bilaterally. Capillary fill time brisk to lesser digits. Absent digital hair growth atrophic skin changes noted. Neurologic light touch protective sensation diminished bilateral feet reestablish mid tibia. Dermatologic full-thickness wound to right plantar medial hallux. Postdebridement measurements document nursing notes are significant periwound callus no signs of infection deep probing or undermining at this time. Wound slightly decreased in size today. Musculoskeletal: There is a hallux valgus deformity contributing to wound formation on the right lower extremity. No pain with calf squeeze muscular strength full to bilateral lower extremity compartments. Debridement Note Debridement Note Post-Debridement Measurements and Additional Note: Post-Debridement Measurements/Treatment ADRIANNA - Nurse 1 - General Ulcer Assessment Start: 12/21/21 11:05 Freq: Status: Active Protocol: MARIAELENA Activity Type Activity Date Activity User E-sign Co-sign Detail Recorded Client Recorded Date Recorded By Document 12/21/21 11:05 MW [id number] 12/21/21 11:08 MW 12/21/21 11:05 - Today's Visit Information Type of service Follow-up Visit (Physician/BATTERY STACKER ) Arrival Mode Ambulatory Transfer Assistance None Accompanied by Patient Identification Verified (Name & No ) Patient Requires Transmission-Based Yes Precautions Safety Precautions NA Height and Weight Body Mass Index (BMI) 28.6 BMI Classification Overweight Vital Signs Temperature (97.8 F-99.1 F) 97.3 F L Temperature Source Temporal Pulse Rate (60-100) 67 Pulse Location Monitor Respiratory Rate (12-18) 16 Respiratory rate source Observation Oxygen Delivery Method Room Air Blood Pressure (90/60-120/80) 135/73 H Blood Pressure Mean (mm Hg) 93 Source Monitor Position Sitting Blood Pressure Location Left Arm History Since Last Visit- (Skip if this is Patient's initial visit) Have you changed medications since your No last visit? Any new allergies or adverse reactions No Had a fall/change in ADL's that may No increase risk of falls Signs or symptoms of abuse and/or No neglect since last visit Have you been in the hospital since your No last visit? Has dressing in place as prescribed Yes Has compression in place as prescribed N/A Experienced any changes in pain level or No management Left Footwear Regular Shoe Right Footwear Regular Shoe Pain Scale: 0-10 Numeric Is Patient Pain Free? Yes WC - Nurse 1 - General Ulcer Measurement Start: 12/21/21 11:05 Freq: Status: Active Protocol: Activity Type Activity Date Activity User E-sign Co-sign Detail Recorded Client Recorded Date Recorded By Document 12/21/21 11:05 MW [id number] 12/21/21 11:08 MW 12/21/21 11:05 Wound Center Nurse 1 #1- R PLANTAR HALLUX -Combined with other wound No -Current Size (cm) - Length 0.1 -Current Size (cm) - Width 0.1 -Current Size (cm) - Depth 0.1 -Total Square Cm 0.01 -Date of Last Picture (Recall this 12/21/21 field) -Photo Taken Yes -Epithelialization None Present -Tunneling No -Undermining/Tunneling No -Circular Undermining No -Exudate Amt Small -Exudate Type Serosanguineous -Wound Margin Flat & Intact -Granulation Amt None Present (0 %) -Granulation Quality N/A -Slough/Fibrin Yes -Necrosis Amt Large (67-100%) -Necrotic Tissue Type Adherent Slough -Structure Exposed N/A -Texture (Neema-wound Skin Appearance) Assessed,Callus -Moisture (Neema-wound Skin Appearance) Assessed,Dry/ Scaly -Color (Neema-wound Skin Appearance) No Abnormality, Assessed -Temperature (Neema-wound Skin No Abnormality Appearance) (Pt Warm) -Tenderness on Palpation (Neema-wound No Skin Appearance) -Ulcer Cleansing Soap and Water -Foul Odor after Cleansing No -Anesthetic Used 5% Lidocaine Gel Lower Limb Edema Present No WC - Nurse 2 - General Ulcer CM Notes Start: 12/21/21 11:05 Freq: Status: Active Protocol: Activity Type Activity Date Activity User E-sign Co-sign Detail Recorded Client Recorded Date Recorded By Document 12/21/21 11:15 MARK [id number] 12/21/21 11:20 MARK 12/21/21 11:15 Wound Center Nurse 2 #1- R PLANTAR HALLUX -Time 11:16 -Correct Patient Yes -Correct Side, Site, Position Yes -Correct Procedure Yes -Procedure Performed Yes -Type of Procedure Debridement -Clinical Debridement Subcutaneous -Tissue Removed Subcutaneous -Post Debridement (cm) - Length 0.3 -Post Debridement (cm) - Width 0.2 -Post Debridement (cm) - Depth 0.1 -Total Square (Post) (cm) 0.06 -Area of Debridement (cm) - Length 0.3 -Area of Debridement (cm) - Width 0.2 -Total Square (Area) (cm) 0.06 -Tunneling No -Undermining/Tunneling No -Circular Undermining No -Wound/Ulcer Outcome Not Healed -Ulcer Cleansing Rinsed/ Irrigated with Saline -Foul Odor after Cleansing No -Bioengineered Tissue Yes -Type of Bioengineered Tissue Epifix 18mm Disc -Expiration Date 08/18/26 -Product Lot Number [id number] -Percent Used 100 -Lot number of Saline Used [id number] -Bleeding Controlled with Pressure -Treatment Response Procedure Tolerated Well -Offloading Yes -Type of Offloading Surgical Shoe -Debridement - Subq, 1st 20sq cm No -Apply Skin Sub - 1st 25 sq cm - Feet 1 -Epifix 18mm Disc 3 Pain Scale: 0-10 Numeric Is Patient Pain Free? Yes Assessment/Plan Assessment/Plan (1) Non-pressure chronic ulcer of other part of right foot with fat layer exposed: CODE(S): L97.512 - Non-pressure chronic ulcer of other part of right foot with fat layer exposed PLAN: Patient examined evaluated, all findings as patient great detail. Noninvasive arterial studies reviewed. These demonstrate a normal finding. No concerns for macro or microvascular disease that may limit wound healing. Right hallux wound appears to be stable and noninfected at this time I recommend improved offloading to heal the wound. Patient has been inconsistent with use of surgical shoe and offloading pad. Patient will return to surgical shoe with reverse Aquino's extension offloading pad. Patient felt unstable in the cam walking boot and suffered 1 fall. 18 mm epi fix graft applied to the hallux ulceration. All graft use no waste. This was used per cfo controller's guidelines and anterior using overlying Adaptic and Steri-Strips followed by DSD. Patient will change this to every third day and keep the underlying Adaptic intact. Patient suffered a right wrist injury 2 weeks ago which time he was seen in the urgent care and they diagnosed him with a sprain. He has noticed increased swelling of recommended that he follows up with his primary care doctor. Patient notes they will call his doctor today. I have discussed in great detail the purpose of offloading the wound and how this will assist healing, patient will be more compliant moving forward. We will consider total contact casting or surgical intervention pending any delays. Follow-up in 1 week. (2) Peripheral vascular disease, unspecified: CODE(S): I73.9 - Peripheral vascular disease, unspecified
[2021-12-28 11:03] VITALS: BP 144/88; PULSE 95; RESP 16; TEMP 36.1; BMI 28.6
--- NOTE | 2021-12-28 12:05 | PN.PCM_ITS ---
History of Present Illness Date of Service: 12/28/21 Progress of Wound: 81-year-old male with history of cardiovascular disease presents with a chronic right hallux wound. Patient notes improvement at this time. Patient offloading with cam walking boot and offloading pad. Patient denies constitutional's. Patient denies signs or symptoms of DVT. No new complaints at this time. Patient notes worsening of his big toe wound. Patient suffered a fall while wearing his cam boot. Patient discontinued this return to normal shoe gear. Patient denies any other issues at this time. Patient sprained his right wrist at that time. Objective Data Objective Data Vital Signs: Vital Signs Temp Pulse Resp BP O2 Del Method 97.0 F L 95 16 144/88 H Room Air 12/28/21 11:03 12/28/21 11:03 12/28/21 11:03 12/28/21 11:03 12/28/21 11:03 Oxygen Delivery Method Room Air Weight: 83.007 kg Body Mass Index (BMI) 28.6 Physical Exam Narrative Patient alert oriented person place and time patient presents ambulating in normal shoe gear at this time. Vascular: Dorsalis pedis posterior tibial pulses 1 out of 4 bilaterally. Capillary fill time brisk to lesser digits. Absent digital hair growth atrophic skin changes noted. Neurologic light touch protective sensation diminished bilateral feet reest ablish mid tibia. Dermatologic full-thickness wound to right plantar medial hallux. Postdebridement measurements document nursing notes are significant periwound callus no signs of infection deep probing or undermining at this time. Wound slightly decreased in size today. Musculoskeletal: There is a hallux valgus deformity contributing to wound formation on the right lower extremity. No pain with calf squeeze muscular strength full to bilateral lower extremity compartments. Debridement Note Debridement Note Post-Debridement Measurements and Additional Note: Post-Debridement Measurements/Treatment ADRIANNA - Nurse 1 - General Ulcer Assessment Start: 12/21/21 11:05 Freq: Status: Active Protocol: MARIAELENA Activity Type Activity Date Activity User E-sign Co-sign Detail Recorded Client Recorded Date Recorded By Document 12/21/21 11:05 MW [id number] 12/21/21 11:08 MW Document 12/28/21 11:03 MW [id number] 12/28/21 11:11 MW 12/21/21 12/28/21 11:05 11:03 - Today's Visit Information Type of service Follow-up Visit Follow-up Visit (Physician/[employer] [employer]PER[employer] (Physician/SV[employer]PER[employer] ) ) Arrival Mode Ambulatory Ambulatory Transfer Assistance None None Accompanied by Patient Identification Verified (Name & No Yes ) Patient Requires Transmission-Based Yes No Precautions Safety Precautions NA Height and Weight Body Mass Index (BMI) 28.6 28.6 BMI Classification Overweight Overweight Vital Signs Temperature (97.8 F-99.1 F) 97.3 F L 97.0 F L Temperature Source Temporal Temporal Pulse Rate (60-100) 67 95 Pulse Location Monitor Monitor Respiratory Rate (12-18) 16 16 Respiratory rate source Observation Observation Oxygen Delivery Method Room Air Room Air Blood Pressure (90/60-120/80) 135/73 H 144/88 H Blood Pressure Mean (mm Hg) 93 106 Source Monitor Monitor Position Sitting Sitting Blood Pressure Location Left Arm Left Arm History Since Last Visit- (Skip if this is Patient's initial visit) Have you changed medications since your No No last visit? Any new allergies or adverse reactions No No Had a fall/change in ADL's that may No No increase risk of falls Signs or symptoms of abuse and/or No No neglect since last visit Have you been in the hospital since your No No last visit? Has dressing in place as prescribed Yes Yes Has compression in place as prescribed N/A N/A Has offloadiing in place as prescribed N/A Experienced any changes in pain level or No No management Left Footwear Regular Shoe Regular Shoe Right Footwear Regular Shoe Regular Shoe Pain Scale: 0-10 Numeric Is Patient Pain Free? Yes Yes - Nurse 1 - General Ulcer Measurement Start: 12/21/21 11:05 Freq: Status: Active Protocol: Activity Type Activity Date Activity User E-sign Co-sign Detail Recorded Client Recorded Date Recorded By Document 12/21/21 11:05 MW [id number] 12/21/21 11:08 MW Document 12/28/21 11:03 MW [id number] 12/28/21 11:11 MW 12/21/21 12/28/21 11:05 11:03 Wound Center Nurse 1 #1- R PLANTAR HALLUX -Combined with other wound No No -Current Size (cm) - Length 0.1 0.1 -Current Size (cm) - Width 0.1 0.1 -Current Size (cm) - Depth 0.1 0.1 -Total Square Cm 0.01 0.01 -Date of Last Picture (Recall this 12/21/21 12/28/21 field) -Photo Taken Yes Yes -Epithelialization None Present None Present -Tunneling No No -Undermining/Tunneling No No -Circular Undermining No No -Exudate Amt Small None Present -Exudate Type Serosanguineous -Wound Margin Flat & Intact Flat & Intact -Granulation Amt None Present (0 None Present (0 %) %) -Granulation Quality N/A N/A -Slough/Fibrin Yes Yes -Necrosis Amt Large (67-100%) Large (67-100%) -Necrotic Tissue Type Adherent Slough Adherent Slough -Structure Exposed N/A N/A -Texture (Neema-wound Skin Appearance) Assessed,Callus Assessed,Callus -Moisture (Neema-wound Skin Appearance) Assessed,Dry/ Assessed,Dry/ Scaly Scaly -Color (Neema-wound Skin Appearance) No Abnormality, No Abnormality, Assessed Assessed -Temperature (Neema-wound Skin No Abnormality No Abnormality Appearance) (Pt Warm) (Pt Warm) -Tenderness on Palpation (Neema-wound No No Skin Appearance) -Ulcer Cleansing Soap and Water Soap and Water -Foul Odor after Cleansing No No -Anesthetic Used 5% Lidocaine 5% Lidocaine Gel Gel Lower Limb Edema Present No No WC - Nurse 2 - General Ulcer CM Notes Start: 12/21/21 11:05 Freq: Status: Active Protocol: Activity Type Activity Date Activity User E-sign Co-sign Detail Recorded Client Recorded Date Recorded By Document 12/21/21 11:15 [id number] 12/21/21 11:20 Document 12/28/21 11:43 [id number] 12/28/21 11:49 12/21/21 12/28/21 11:15 11:43 Wound Center Nurse 2 #1- R PLANTAR HALLUX -Time 11:16 11:43 -Correct Patient Yes Yes -Correct Side, Site, Position Yes Yes -Correct Procedure Yes Yes -Procedure Performed Yes Yes -Type of Procedure Debridement Debridement -Clinical Debridement Subcutaneous Subcutaneous -Tissue Removed Subcutaneous Subcutaneous -Post Debridement (cm) - Length 0.3 0.4 -Post Debridement (cm) - Width 0.2 0.2 -Post Debridement (cm) - Depth 0.1 0.2 -Total Square (Post) (cm) 0.06 0.08 -Area of Debridement (cm) - Length 0.3 0.4 -Area of Debridement (cm) - Width 0.2 0.2 -Total Square (Area) (cm) 0.06 0.08 -Tunneling No No -Undermining/Tunneling No No -Circular Undermining No No -Wound/Ulcer Outcome Not Healed Not Healed -Ulcer Cleansing Rinsed/ Rinsed/ Irrigated with Irrigated with Saline Saline -Foul Odor after Cleansing No No -Bioengineered Tissue Yes Yes -Type of Bioengineered Tissue Epifix 18mm Epifix 18mm Disc Disc -Expiration Date 08/18/26 09/17/26 -Product Lot Number [id number] -Percent Used 100 100 -Lot number of Saline Used [id number] -Bleeding Controlled with Pressure Pressure -Treatment Response Procedure Procedure Tolerated Well Tolerated Well -Offloading Yes No -Type of Offloading Surgical Shoe -Other Pressure Reduction diabetic shoes -Debridement - Subq, 1st 20sq cm No No -Apply Skin Sub - 1st 25 sq cm - Feet 1 1 -Epifix 18mm Disc 3 3 Pain Scale: 0-10 Numeric Is Patient Pain Free? Yes Yes - Nurse 3 - General Ulcer D/C NN Start: 12/21/21 11:05 Freq: Status: Active Protocol: Activity Type Activity Date Activity User E-sign Co-sign Detail Recorded Client Recorded Date Recorded By Document 12/21/21 11:31 [id number] 12/21/21 11:31 MW Document 12/28/21 11:54 [facility] [id number] 12/28/21 11:54 [facility] 12/21/21 12/28/21 11:31 11:54 Wound Care Nurse 3 #1- R PLANTAR HALLUX -Ulcer Cleansing Not Cleansed -Other Dressing EPIFIX -Primary Dressing Covered/Secured with Dry Gauze, Secured with Secured with Tape,Other Tape -Other Covering COBAN Treatment Response Procedure Procedure Tolerated Well Tolerated Well Pain Scale: 0-10 Numeric Is Patient Pain Free? Yes Yes Teaching: Wound Center Dressing Your Wound -Person Taught Patient,Family -Teaching Method Discussion, Demonstration -Response to teaching Verbalize understanding WC - Visit Discharge Discharge Condition Stable Stable Ambulatory Status Ambulatory Ambulatory Transportation Private Auto Private Auto Accompanied by Medication Reconcilliation completed & No provided to patient/care provider Clinical Summary of Care Provided Yes Assessment/Plan Assessment/Plan (1) Non-pressure chronic ulcer of other part of right foot with fat layer exposed: CODE(S): L97.512 - Non-pressure chronic ulcer of other part of right foot with fat layer exposed PLAN: Patient examined evaluated, all findings as patient great detail. Recent arterial studies within normal limits. Right hallux wound appears to be stable and noninfected at this time I recommend improved offloading to heal the wound. Patient has been inconsistent with use of surgical shoe and offloading pad. Patient noncompliant with offloading right hallux ulceration. Refuses total contact cast or total nonweightbearing. He is offloading with his diabetic shoes at this time. 18 mm epi fix graft applied to the hallux ulceration. All graft use no waste. This was used per extension associate's guidelines and anterior using overlying Adaptic and Steri-Strips followed by DSD. Patient will change this to every third day and keep the underlying Adaptic intact. I have discussed in great detail the purpose of offloading the wound and how this will assist healing, patient will be more compliant moving forward. We will consider total contact casting or surgical intervention pending any delays. Follow-up in 1 week. Will consider reevaluation of diabetes control and nutritional status. (2) Peripheral vascular disease, unspecified: CODE(S): I73.9 - Peripheral vascular disease, unspecified
[2022-01-04 11:12] VITALS: BP 147/107; PULSE 94; TEMP 35.7; BMI 28.6
--- NOTE | 2022-01-04 11:41 | PN.PCM_ITS ---
History of Present Illness Date of Service: 01/04/22 Progress of Wound: 81-year-old male with history of cardiovascular disease presents with a chronic right hallux wound. Patient notes improvement at this time. Patient offloading with cam walking boot and offloading pad. Patient denies constitutional's. Patient denies signs or symptoms of DVT. No new complaints at this time. Patient notes worsening of his big toe wound. Patient suffered a fall while wearing his cam boot. Patient discontinued this return to normal shoe gear. Patient denies any other issues at this time. Patient sprained his right wrist at that time. Objective Data Objective Data Vital Signs: Vital Signs Temp Pulse Resp BP O2 Del Method 96.2 F L 94 16 147/107 H Room Air 01/04/22 11:12 01/04/22 11:12 12/28/21 11:03 01/04/22 11:12 12/28/21 11:03 Oxygen Delivery Method Room Air Weight: 83.007 kg Body Mass Index (BMI) 28.6 Physical Exam Narrative Patient alert oriented person place and time patient presents ambulating in normal shoe gear at this time. Vascular: Dorsalis pedis posterior tibial pulses 1 out of 4 bilaterally. Capillary fill time brisk to lesser digits. Absent digital hair growth atrophic skin changes noted. Neurologic light touch protective sensation diminished bilateral feet annika tablish mid tibia. Dermatologic full-thickness wound to right plantar medial hallux. Postdebridement measurements document nursing notes are significant periwound callus no signs of infection deep probing or undermining at this time. Wound slightly decreased in size today. Musculoskeletal: There is a hallux valgus deformity contributing to wound formation on the right lower extremity. No pain with calf squeeze muscular strength full to bilateral lower extremity compartments. Debridement Note Debridement Note Post-Debridement Measurements and Additional Note: Post-Debridement Measurements/Treatment ADRIANNA - Nurse 1 - General Ulcer Assessment Start: 12/21/21 11:05 Freq: Status: Active Protocol: MARIAELENA Activity Type Activity Date Activity User E-sign Co-sign Detail Recorded Client Recorded Date Recorded By Document 12/21/21 11:05 MW [id number] 12/21/21 11:08 MW Document 12/28/21 11:03 MW [id number] 12/28/21 11:11 MW Document 01/04/22 11:12 AK [id number] 01/04/22 11:14 AK 12/21/21 12/28/21 01/04/22 11:05 11:03 11:12 WC - Today's Visit Information Type of service Follow-up Visit Follow-up Visit Follow-up Visit (Physician/TRANSPORTATION MAINTENANCE OPERATOR (Physician/TRANSPORTATION MAINTENANCE OPERATOR (Physician/TRANSPORTATION MAINTENANCE OPERATOR ) ) ) Arrival Mode Ambulatory Ambulatory Ambulatory Transfer Assistance None None Accompanied by Patient Identification Verified (Name & No Yes Yes ) Patient Requires Transmission-Based Yes No No Precautions Safety Precautions NA NA Height and Weight Body Mass Index (BMI) 28.6 28.6 28.6 BMI Classification Overweight Overweight Overweight Vital Signs Temperature (97.8 F-99.1 F) 97.3 F L 97.0 F L 96.2 F L Temperature Source Temporal Temporal Temporal Pulse Rate (60-100) 67 95 94 Pulse Location Monitor Monitor Monitor Respiratory Rate (12-18) 16 16 Respiratory rate source Observation Observation Oxygen Delivery Method Room Air Room Air Blood Pressure (90/60-120/80) 135/73 H 144/88 H 147/107 H Blood Pressure Mean (mm Hg) 93 106 120 Source Monitor Monitor Monitor Position Sitting Sitting Blood Pressure Location Left Arm Left Arm History Since Last Visit- (Skip if this is Patient's initial visit) Have you changed medications since your No No No last visit? Any new allergies or adverse reactions No No No Had a fall/change in ADL's that may No No No increase risk of falls Signs or symptoms of abuse and/or No No No neglect since last visit Have you been in the hospital since your No No No last visit? Has dressing in place as prescribed Yes Yes Yes Has compression in place as prescribed N/A N/A N/A Has offloadiing in place as prescribed N/A N/A Experienced any changes in pain level or No No No management Left Footwear Regular Shoe Regular Shoe Regular Shoe Right Footwear Regular Shoe Regular Shoe Regular Shoe Pain Scale: 0-10 Numeric Is Patient Pain Free? Yes Yes Yes - Nurse 1 - General Ulcer Measurement Start: 12/21/21 11:05 Freq: Status: Active Protocol: Activity Type Activity Date Activity User E-sign Co-sign Detail Recorded Client Recorded Date Recorded By Document 12/21/21 11:05 MW [id number] 12/21/21 11:08 MW Document 12/28/21 11:03 MW [id number] 12/28/21 11:11 MW Document 01/04/22 11:12 AK [id number] 01/04/22 11:14 AK 12/21/21 12/28/21 01/04/22 11:05 11:03 11:12 Wound Center Nurse 1 #1- R PLANTAR HALLUX -Combined with other wound No No No -Current Size (cm) - Length 0.1 0.1 0.1 -Current Size (cm) - Width 0.1 0.1 0.1 -Current Size (cm) - Depth 0.1 0.1 0.1 -Total Square Cm 0.01 0.01 0.01 -Date of Last Picture (Recall this 12/21/21 12/28/21 field) -Photo Taken Yes Yes No -Epithelialization None Present None Present -Tunneling No No No -Undermining/Tunneling No No No -Circular Undermining No No No -Change in Wound Grade/Stage No -Exudate Amt Small None Present None Present -Exudate Type Serosanguineous -Wound Margin Flat & Intact Flat & Intact Distinct, Outline Attached -Granulation Amt None Present (0 None Present (0 None Present (0 %) %) %) -Granulation Quality N/A N/A Hyper- granulation -Slough/Fibrin Yes Yes No -Necrosis Amt Large (67-100%) Large (67-100%) None Present (0 %) -Necrotic Tissue Type Adherent Slough Adherent Slough -Structure Exposed N/A N/A N/A -Texture (Neema-wound Skin Appearance) Assessed,Callus Assessed,Callus No Abnormality, Assessed -Moisture (Neema-wound Skin Appearance) Assessed,Dry/ Assessed,Dry/ No Abnormality, Scaly Scaly Assessed -Color (Neema-wound Skin Appearance) No Abnormality, No Abnormality, No Abnormality, Assessed Assessed Assessed -Temperature (Neema-wound Skin No Abnormality No Abnormality No Abnormality Appearance) (Pt Warm) (Pt Warm) (Pt Warm) -Tenderness on Palpation (Neema-wound No No No Skin Appearance) -Ulcer Cleansing Soap and Water Soap and Water Rinsed/ Irrigated with Saline -Foul Odor after Cleansing No No No -Anesthetic Used 5% Lidocaine 5% Lidocaine 5% Lidocaine Gel Gel Gel Lower Limb Edema Present No No WC - Nurse 2 - General Ulcer CM Notes Start: 12/21/21 11:05 Freq: Status: Active Protocol: Activity Type Activity Date Activity User E-sign Co-sign Detail Recorded Client Recorded Date Recorded By Document 12/21/21 11:15 [id number] 12/21/21 11:20 Document 12/28/21 11:43 [id number] 12/28/21 11:49 Document 01/04/22 11:32 [id number] 01/04/22 11:38 12/21/21 12/28/21 01/04/22 11:15 11:43 11:32 Wound Center Nurse 2 #1- R PLANTAR HALLUX -Time 11:16 11:43 11:32 -Correct Patient Yes Yes Yes -Correct Side, Site, Position Yes Yes Yes -Correct Procedure Yes Yes Yes -Procedure Performed Yes Yes Yes -Type of Procedure Debridement Debridement Debridement -Clinical Debridement Subcutaneous Subcutaneous Subcutaneous -Tissue Removed Subcutaneous Subcutaneous Subcutaneous -Post Debridement (cm) - Length 0.3 0.4 0.2 -Post Debridement (cm) - Width 0.2 0.2 0.2 -Post Debridement (cm) - Depth 0.1 0.2 0.1 -Total Square (Post) (cm) 0.06 0.08 0.04 -Area of Debridement (cm) - Length 0.3 0.4 0.2 -Area of Debridement (cm) - Width 0.2 0.2 0.2 -Total Square (Area) (cm) 0.06 0.08 0.04 -Tunneling No No No -Undermining/Tunneling No No No -Circular Undermining No No No -Wound/Ulcer Outcome Not Healed Not Healed Not Healed -Ulcer Cleansing Rinsed/ Rinsed/ Rinsed/ Irrigated with Irrigated with Irrigated with Saline Saline Saline -Foul Odor after Cleansing No No No -Bioengineered Tissue Yes Yes Yes -Type of Bioengineered Tissue Epifix 18mm Epifix 18mm Epifix 18mm Disc Disc Disc -Expiration Date 08/18/26 09/17/26 09/17/26 -Product Lot Number [id number] -Percent Used 100 100 100 -Lot number of Saline Used [id number] -Bleeding Controlled with Pressure Pressure Pressure -Treatment Response Procedure Procedure Procedure Tolerated Well Tolerated Well Tolerated Well -Offloading Yes No Yes -Type of Offloading Surgical Shoe Surgical Shoe -Other Pressure Reduction diabetic shoes -Debridement - Subq, 1st 20sq cm No No No -Apply Skin Sub - 1st 25 sq cm - Feet 1 1 1 -Epifix 18mm Disc 3 3 3 Pain Scale: 0-10 Numeric Is Patient Pain Free? Yes Yes Yes - Nurse 3 - General Ulcer D/C NN Start: 12/21/21 11:05 Freq: Status: Active Protocol: Activity Type Activity Date Activity User E-sign Co-sign Detail Recorded Client Recorded Date Recorded By Document 12/21/21 11:31 MW [id number] 12/21/21 11:31 MW Document 12/28/21 11:54 [facility] [id number] 12/28/21 11:54 [facility] 12/21/21 12/28/21 11:31 11:54 Wound Care Nurse 3 #1- R PLANTAR HALLUX -Ulcer Cleansing Not Cleansed -Other Dressing EPIFIX -Primary Dressing Covered/Secured with Dry Gauze, Secured with Secured with Tape,Other Tape -Other Covering COBAN Treatment Response Procedure Procedure Tolerated Well Tolerated Well Pain Scale: 0-10 Numeric Is Patient Pain Free? Yes Yes Teaching: Wound Center Dressing Your Wound -Person Taught Patient,Family -Teaching Method Discussion, Demonstration -Response to teaching Verbalize understanding WC - Visit Discharge Discharge Condition Stable Stable Ambulatory Status Ambulatory Ambulatory Transportation Private Auto Private Auto Accompanied by Medication Reconcilliation completed & No provided to patient/care provider Clinical Summary of Care Provided Yes Assessment/Plan Assessment/Plan (1) Non-pressure chronic ulcer of other part of right foot with fat layer exposed: CODE(S): L97.512 - Non-pressure chronic ulcer of other part of right foot with fat layer exposed PLAN: Patient examined evaluated, all findings as patient great detail. Recent arterial studies within normal limits. Right hallux wound appears to be stable and noninfected at this time I recommend improved offloading to heal the wound. Patient has been inconsistent with use of surgical shoe and offloading pad. Patient noncompliant with offloading right hallux ulceration. Refuses total contact cast or total nonweightbearing. He is offloading with his diabetic shoes at this time. 18 mm epi fix graft applied to the hallux ulceration. All graft use no waste. This was used per florist designer's guidelines and anterior using overlying Adaptic and Steri-Strips followed by DSD. Patient will change this to every third day and keep the underlying Adaptic intact. I have discussed in great detail the purpose of offloading the wound and how this will assist healing, patient will be more compliant moving forward. We will consider total contact casting or surgical intervention pending any delays. Follow-up in 1 week. Will consider re-evaluation of diabetes control and nutritional status. (2) Peripheral vascular disease, unspecified: CODE(S): I73.9 - Peripheral vascular disease, unspecified
[2022-01-11 11:14] VITALS: BP 142/81; PULSE 62; RESP 16; TEMP 36.4; BMI 28.6
--- NOTE | 2022-01-11 11:51 | PCM.WC.PN ---
History of Present Illness Date of Service: 01/11/22 Progress of Wound: 81-year-old male with history of cardiovascular disease presents with a chronic right hallux wound. Patient notes improvement at this time. Patient offloading with cam walking boot and offloading pad. Patient denies constitutional's. Patient denies signs or symptoms of DVT. No new complaints at this time. Objective Data Objective Data Vital Signs: Vital Signs Temp Pulse Resp BP O2 Del Method 97.5 F L 62 16 142/81 H Room Air 01/11/22 11:14 01/11/22 11:14 01/11/22 11:14 01/11/22 11:14 01/11/22 11:14 Oxygen Delivery Method Room Air Weight: 83.007 kg Body Mass Index (BMI) 28.6 Physical Exam Narrative Patient alert oriented person place and time patient presents ambulating in normal shoe gear at this time. Vascular: Dorsalis pedis posterior tibial pulses 1 out of 4 bilaterally. Capillary fill time brisk to lesser digits. Absent digital hair growth atrophic skin changes noted. Neurologic light touch protective sensation diminished bilateral feet reestablish mid tibia. Dermatologic full-thickness wound to right plantar medial hallux. Postdebridement measurements document nursing notes are significant periwound callus no signs of infection deep probing or undermining at this time. Wound slightly decreased in size today. Musculoskeletal: There is a hallux valgus deformity contributing to wound formation on the right lower extremity. No pain with calf squeeze muscular strength full to bilateral lower extremity compartments. Debridement Note Debridement Note Post-Debridement Measurements and Additional Note: Post-Debridement Measurements/Treatment WC - Nurse 1 - General Ulcer Assessment Start: 12/21/21 11:05 Freq: Status: Active Protocol: MARIAELENA Activity Type Activity Date Activity User E-sign Co-sign Detail Recorded Client Recorded Date Recorded By Document 12/21/21 11:05 MW [id number] 12/21/21 11:08 MW Document 12/28/21 11:03 MW [id number] 12/28/21 11:11 MW Document 01/04/22 11:12 AK [id number] 01/04/22 11:14 AK Document 01/11/22 11:14 BM [id number] 01/11/22 11:21 BMF 12/21/21 12/28/21 01/04/22 11:05 11:03 11:12 WC - Today's Visit Information Type of service Follow-up Visit Follow-up Visit Follow-up Visit (Physician/INFORMATION ASSURANCE OFFICER (Physician/INFORMATION ASSURANCE OFFICER (Physician/INFORMATION ASSURANCE OFFICER ) ) ) Arrival Mode Ambulatory Ambulatory Ambulatory Transfer Assistance None None Accompanied by Patient Identification Verified (Name & No Yes Yes ) Patient Requires Transmission-Based Yes No No Precautions Safety Precautions NA NA Height and Weight Body Mass Index (BMI) 28.6 28.6 28.6 BMI Classification Overweight Overweight Overweight Vital Signs Temperature (97.8 F-99.1 F) 97.3 F L 97.0 F L 96.2 F L Temperature Source Temporal Temporal Temporal Pulse Rate (60-100) 67 95 94 Pulse Location Monitor Monitor Monitor Respiratory Rate (12-18) 16 16 Respiratory rate source Observation Observation Oxygen Delivery Method Room Air Room Air Blood Pressure (90/60-120/80) 135/73 H 144/88 H 147/107 H Blood Pressure Mean (mm Hg) 93 106 120 Source Monitor Monitor Monitor Position Sitting Sitting Blood Pressure Location Left Arm Left Arm History Since Last Visit- (Skip if this is Patient's initial visit) Have you changed medications since your No No No last visit? Any new allergies or adverse reactions No No No Had a fall/change in ADL's that may No No No increase risk of falls Signs or symptoms of abuse and/or No No No neglect since last visit Have you been in the hospital since your No No No last visit? Has dressing in place as prescribed Yes Yes Yes Has compression in place as prescribed N/A N/A N/A Has offloadiing in place as prescribed N/A N/A Experienced any changes in pain level or No No No management Left Footwear Regular Shoe Regular Shoe Regular Shoe Right Footwear Regular Shoe Regular Shoe Regular Shoe Pain Scale: 0-10 Numeric Is Patient Pain Free? Yes Yes Yes 01/11/22 11:14 WC - Today's Visit Information Type of service Follow-up Visit (Physician/INFORMATION ASSURANCE OFFICER ) Arrival Mode Ambulatory Transfer Assistance None Accompanied by Patient Identification Verified (Name & Yes ) Patient Requires Transmission-Based No Precautions Safety Precautions Height and Weight Body Mass Index (BMI) 28.6 BMI Classification Overweight Vital Signs Temperature (97.8 F-99.1 F) 97.5 F L Temperature Source Temporal Pulse Rate (60-100) 62 Pulse Location Monitor Respiratory Rate (12-18) 16 Respiratory rate source Observation Oxygen Delivery Method Room Air Blood Pressure (90/60-120/80) 142/81 H Blood Pressure Mean (mm Hg) 101 Source Monitor Position Sitting Blood Pressure Location Left Arm History Since Last Visit- (Skip if this is Patient's initial visit) Have you changed medications since your No last visit? Any new allergies or adverse reactions No Had a fall/change in ADL's that may No increase risk of falls Signs or symptoms of abuse and/or No neglect since last visit Have you been in the hospital since your No last visit? Has dressing in place as prescribed Yes Has compression in place as prescribed N/A Has offloadiing in place as prescribed N/A Experienced any changes in pain level or No management Left Footwear Diabetic Shoe Right Footwear Diabetic Shoe Pain Scale: 0-10 Numeric Is Patient Pain Free? Yes WC - Nurse 1 - General Ulcer Measurement Start: 12/21/21 11:05 Freq: Status: Active Protocol: Activity Type Activity Date Activity User E-sign Co-sign Detail Recorded Client Recorded Date Recorded By Document 12/21/21 11:05 MW [id number] 12/21/21 11:08 MW Document 12/28/21 11:03 MW [id number] 12/28/21 11:11 MW Document 01/04/22 11:12 AK [id number] 01/04/22 11:14 AK Document 01/11/22 11:14 [facility] [id number] 01/11/22 11:21 BM 12/21/21 12/28/21 01/04/22 11:05 11:03 11:12 Wound Center Nurse 1 #1- R PLANTAR HALLUX -Combined with other wound No No No -Current Size (cm) - Length 0.1 0.1 0.1 -Current Size (cm) - Width 0.1 0.1 0.1 -Current Size (cm) - Depth 0.1 0.1 0.1 -Total Square Cm 0.01 0.01 0.01 -Date of Last Picture (Recall this 12/21/21 12/28/21 field) -Photo Taken Yes Yes No -Epithelialization None Present None Present -Tunneling No No No -Undermining/Tunneling No No No -Circular Undermining No No No -Change in Wound Grade/Stage No -Exudate Amt Small None Present None Present -Exudate Type Serosanguineous -Wound Margin Flat & Intact Flat & Intact Distinct, Outline Attached -Granulation Amt None Present (0 None Present (0 None Present (0 %) %) %) -Granulation Quality N/A N/A Hyper- granulation -Slough/Fibrin Yes Yes No -Necrosis Amt Large (67-100%) Large (67-100%) None Present (0 %) -Necrotic Tissue Type Adherent Slough Adherent Slough -Structure Exposed N/A N/A N/A -Texture (Neema-wound Skin Appearance) Assessed,Callus Assessed,Callus No Abnormality, Assessed -Moisture (Neema-wound Skin Appearance) Assessed,Dry/ Assessed,Dry/ No Abnormality, Scaly Scaly Assessed -Color (Neema-wound Skin Appearance) No Abnormality, No Abnormality, No Abnormality, Assessed Assessed Assessed -Temperature (Neema-wound Skin No Abnormality No Abnormality No Abnormality Appearance) (Pt Warm) (Pt Warm) (Pt Warm) -Tenderness on Palpation (Neema-wound No No No Skin Appearance) -Ulcer Cleansing Soap and Water Soap and Water Rinsed/ Irrigated with Saline -Foul Odor after Cleansing No No No -Anesthetic Used 5% Lidocaine 5% Lidocaine 5% Lidocaine Gel Gel Gel Lower Limb Edema Present No No 01/11/22 11:14 Wound Center Nurse 1 #1- R PLANTAR HALLUX -Combined with other wound No -Current Size (cm) - Length 0.1 -Current Size (cm) - Width 0.1 -Current Size (cm) - Depth 0.1 -Total Square Cm 0.01 -Date of Last Picture (Recall this field) -Photo Taken -Epithelialization Large 67-100% -Tunneling No -Undermining/Tunneling No -Circular Undermining No -Change in Wound Grade/Stage -Exudate Amt None Present -Exudate Type -Wound Margin Distinct, Outline Attached -Granulation Amt -Granulation Quality -Slough/Fibrin -Necrosis Amt -Necrotic Tissue Type -Structure Exposed -Texture (Neema-wound Skin Appearance) Callus,Scarring -Moisture (Neema-wound Skin Appearance) Assessed,Dry/ Scaly -Color (Neema-wound Skin Appearance) Assessed -Temperature (Neema-wound Skin No Abnormality Appearance) (Pt Warm) -Tenderness on Palpation (Neema-wound No Skin Appearance) -Ulcer Cleansing Soap and Water -Foul Odor after Cleansing No -Anesthetic Used 5% Lidocaine Gel Lower Limb Edema Present WC - Nurse 2 - General Ulcer CM Notes Start: 12/21/21 11:05 Freq: Status: Active Protocol: Activity Type Activity Date Activity User E-sign Co-sign Detail Recorded Client Recorded Date Recorded By Document 12/21/21 11:15 [id number] 12/21/21 11:20 Document 12/28/21 11:43 [id number] 12/28/21 11:49 Document 01/04/22 11:32 [id number] 01/04/22 11:38 Document 01/11/22 11:44 [id number] 01/11/22 11:46 12/21/21 12/28/21 01/04/22 11:15 11:43 11:32 Wound Center Nurse 2 #1- R PLANTAR HALLUX -Time 11:16 11:43 11:32 -Correct Patient Yes Yes Yes -Correct Side, Site, Position Yes Yes Yes -Correct Procedure Yes Yes Yes -Procedure Performed Yes Yes Yes -Type of Procedure Debridement Debridement Debridement -Clinical Debridement Subcutaneous Subcutaneous Subcutaneous -Tissue Removed Subcutaneous Subcutaneous Subcutaneous -Post Debridement (cm) - Length 0.3 0.4 0.2 -Post Debridement (cm) - Width 0.2 0.2 0.2 -Post Debridement (cm) - Depth 0.1 0.2 0.1 -Total Square (Post) (cm) 0.06 0.08 0.04 -Area of Debridement (cm) - Length 0.3 0.4 0.2 -Area of Debridement (cm) - Width 0.2 0.2 0.2 -Total Square (Area) (cm) 0.06 0.08 0.04 -Tunneling No No No -Undermining/Tunneling No No No -Circular Undermining No No No -Wound/Ulcer Outcome Not Healed Not Healed Not Healed -Ulcer Cleansing Rinsed/ Rinsed/ Rinsed/ Irrigated with Irrigated with Irrigated with Saline Saline Saline -Foul Odor after Cleansing No No No -Bioengineered Tissue Yes Yes Yes -Type of Bioengineered Tissue Epifix 18mm Epifix 18mm Epifix 18mm Disc Disc Disc -Expiration Date 08/18/26 09/17/26 09/17/26 -Product Lot Number [id number] -Percent Used 100 100 100 -Lot number of Saline Used [id number] -Bleeding Controlled with Pressure Pressure Pressure -Treatment Response Procedure Procedure Procedure Tolerated Well Tolerated Well Tolerated Well -Offloading Yes No Yes -Type of Offloading Surgical Shoe Surgical Shoe -Other Pressure Reduction diabetic shoes -Debridement - Subq, 1st 20sq cm No No No -Apply Skin Sub - 1st 25 sq cm - Feet 1 1 1 -Epifix 18mm Disc 3 3 3 Pain Scale: 0-10 Numeric Is Patient Pain Free? Yes Yes Yes 01/11/22 11:44 Wound Center Nurse 2 #1- R PLANTAR HALLUX -Time -Correct Patient No -Correct Side, Site, Position No -Correct Procedure No -Procedure Performed No -Type of Procedure -Clinical Debridement -Tissue Removed -Post Debridement (cm) - Length 0 -Post Debridement (cm) - Width 0 -Post Debridement (cm) - Depth 0 -Total Square (Post) (cm) 0 -Area of Debridement (cm) - Length 0 -Area of Debridement (cm) - Width 0 -Total Square (Area) (cm) 0 -Tunneling -Undermining/Tunneling -Circular Undermining -Wound/Ulcer Outcome Healed- Epithelialized -Ulcer Cleansing -Foul Odor after Cleansing -Bioengineered Tissue -Type of Bioengineered Tissue -Expiration Date -Product Lot Number -Percent Used -Lot number of Saline Used -Bleeding Controlled with -Treatment Response -Offloading -Type of Offloading -Other Pressure Reduction -Debridement - Subq, 1st 20sq cm -Apply Skin Sub - 1st 25 sq cm - Feet -Epifix 18mm Disc Pain Scale: 0-10 Numeric Is Patient Pain Free? Yes - Nurse 3 - General Ulcer D/C NN Start: 12/21/21 11:05 Freq: Status: Active Protocol: Activity Type Activity Date Activity User E-sign Co-sign Detail Recorded Client Recorded Date Recorded By Document 12/21/21 11:31 MW [id number] 12/21/21 11:31 Document 12/28/21 11:54 [facility] [id number] 12/28/21 11:54 [facility] Document 01/04/22 11:43 [facility] [id number] 01/04/22 11:43 [facility] Document 01/11/22 11:46 [id number] 01/11/22 11:48 JF 12/21/21 12/28/21 01/04/22 11:31 11:54 11:43 Wound Care Nurse 3 #1- R PLANTAR HALLUX -Ulcer Cleansing Not Cleansed -Other Dressing EPIFIX epifix -Primary Dressing Covered/Secured with Dry Gauze, Secured with Dry Gauze Secured with Tape,Other Tape -Other Covering COBAN secured w/ coban per pt preference Treatment Response Procedure Procedure Procedure Tolerated Well Tolerated Well Tolerated Well Pain Scale: 0-10 Numeric Is Patient Pain Free? Yes Yes Yes Teaching: Wound Center Dressing Your Wound -Person Taught Patient,Family -Teaching Method Discussion, Demonstration -Response to teaching Verbalize understanding WC - Visit Discharge Discharge Condition Stable Stable Stable Ambulatory Status Ambulatory Ambulatory Ambulatory Transportation Private Auto Private Auto Private Auto Accompanied by Medication Reconcilliation completed & No provided to patient/care provider Clinical Summary of Care Provided Yes 01/11/22 11:46 Wound Care Nurse 3 #1- R PLANTAR HALLUX -Ulcer Cleansing -Other Dressing -Primary Dressing Covered/Secured with -Other Covering Treatment Response Pain Scale: 0-10 Numeric Is Patient Pain Free? Yes Teaching: Wound Center Dressing Your Wound -Person Taught -Teaching Method -Response to teaching WC - Visit Discharge Discharge Condition Stable Ambulatory Status Ambulatory Transportation Private Auto Accompanied by Medication Reconcilliation completed & Yes provided to patient/care provider Clinical Summary of Care Provided Yes Assessment/Plan Assessment/Plan (1) Non-pressure chronic ulcer of other part of right foot with fat layer exposed: CODE(S): L97.512 - Non-pressure chronic ulcer of other part of right foot with fat layer exposed PLAN: Patient examined evaluated, all findings as patient great detail. Patient's wound is healed at this time. Patient will perform daily foot checks to ensure no real ulceration. Patient will ambulate in his diabetic shoe gear. Patient will follow up in 1 month at which time we will perform at risk nail care and diabetic foot check. (2) Peripheral vascular disease, unspecified: CODE(S): I73.9 - Peripheral vascular disease, unspecified
== END 2022-01-11 15:07 | disposition home or self-care (01) ==
LOC: WC 11:15
PROVIDERS: PCP Family Medicine; Visit Provider Podiatrist
DX: L97.512 Non-pressure chronic ulcer of other part of right foot with fat layer exposed (principal); I73.9 Peripheral vascular disease, unspecified
CPT/HCPCS: 15275; 99212; Q4186; G0463

== ENCOUNTER 2024-07-18 13:00 | Outpatient (RCR) | payer MEDICARE, SELFPAY ==
--- NOTE | 2024-04-29 15:05 | HP.PTEVAL ---
Patient's Visit Information Visit Information Visit Information: WILI DENNY is a 84 year old M referred to Physical Therapy by Dr. Junior Mendoza MD with a diagnosis of Unsteady gait. Date of Evaluation: 04/29/24 Physical Therapist: Thong Foster, PT, ATC Visit Plan Frequency: 2x /Week Duration: 4-6 Weeks Plan: B LE strengthening, core stab ex's, balance and proprio, gait training, stair negotiation, nustep, and HEP Subjective Subjective: Pt reports he has had a couple falls in the past, but none recently. Pt reports he uses no AD at this time. Pt reports he often relies on his for balance support. Pt reports his LE's have normal sensation at this time. Pt reports when he did fall in the past, it was when he was descending stairs at home. Pt reports he has stairs at home that he has to negotiate one step at a time. Pt denies getting light headed or dizzy at this time. Pt reports he does notice having weakness in his legs. Pt denies being in any pain at this time. Pt is retired at this time and has been since 2008. Pt reports he is able to do all the stuff he wants to do, he just has to do them more slowly. Pt reports he had a cardiac surgery and a toe surgery approximately 2 years ago which resulted in him sitting around a lot and becoming debilitated. Objective Objective: Neuro: B LE sensation is WNL to light touch. B patellar reflex= 1/3 ROM: B LE ROM is WNL when compared bilaterally MMT: B hips are rated at 5/5 throughout. B knee flex and ext are weak compared bilaterally being rated at 4/5 today. FGA: 02/16 indicating pt is a fall risk at this time. Educated pt on safety concerns and recommended pt use his cane in the community as an AD. Educated pt on proper use of ambulation with a cane. Pt demonstrated proper form and progression today with use of a cane. Balance/Special Test Scores Functional Gait Assessment Score: 11 % Disability: 63.3400 Lower Extremity Functional Score: 41 Goals Goal 1:: Increase FGA score by 5-10 points to aid with preventing future falls Goal Time Frame: 4-6 Weeks Goal 2:: Increase B LE strength x 1 grade to aid with stair negotiation Goal 3:: Pt will be able to reciprocally negotiate stairs with use of one handrail Goal Time Frame: 4-6 Weeks Goal 4:: I with HEP Goal Time Frame: 4-6 Weeks Rehabilitation Potential Physical Therapy Diagnosis: Pt has B LE weakness and an unsteady gait pattern at this time secondary to debiliation Rehabilitation Potential: Good Anticipated Interventions Patient/Client Instruction: Educate patient on: Condition and Plan of Care For the Purpose of:: To improve safety and To improve self management Therapeutic Exercise to Include: Strength training, Endurance training, Balance training, Gait and locomotor training and Dynamic Lumbar Stabilization For the Purpose of:: To improve muscle performance and motor function, To increase tolerance to activity/condition/position, To improve ability of physical actions for home/community/work/leisure, To improve gait and locomotor functions and To improve safety with gait Text: Thank you for the opportunity to evaluate your patient. For Medicare and Medicare HMO plans, please review the plan of care and approve it. It will need to be FAXED BACK to us at [phone] for Medicare purposes. For Medicare only, by signing this I certify the plan of care. Please let me know if there are questions or concerns regarding this plan of care. Physician Signature: Date:
--- NOTE | 2024-06-12 13:59 | HP.PTREVAL ---
Re-Evaluation Intro: Dr. Junior Mendoza MD, It has been my pleasure to treat WILI DENNY over the last 13 visits for Unsteady gait. Please see the progress note below for an update on the physical therapy plan of care! Subjective Subjective: Pt reports he feels like he has definitely noticed improvements. He has no difficulty with ambulating in his house. Still uses a cane for community ambulation. Objective Objective/Function: FGA 14/30- still indicating a fall risk at this time B LE strength is 4+/5 throughout Pt is able to negotiate 10 stairs with one HR reciprocally Pt has made significant progress at this time with strength and stair negotiation. Pt is still limited with balance and is a risk for falling. Plan Plan Plan: Attempt to get 12 more visits to focus on fall prevention through B LE strengthening and balance training Balance/Gait/Functional tests Balance/Special Test Scores Functional Gait Assessment Score: 14 % Disability: 53.3400 Lower Extremity Functional Score: 59 TUG Test Time Seconds: 10.77 Tug Test: <20 sec.=mostly independent 30 Second Chair Rise Test Seconds: 13 Goals Goals Goal 1:: Increase FGA score by 5-10 points to aid with preventing future falls Goal Time Frame: 4-6 Weeks Goal Progress: Progressing Goal 2:: Increase B LE strength x 1 grade to aid with stair negotiation Goal Progress: Progressing Goal 3:: Pt will be able to reciprocally negotiate stairs with use of one handrail Goal Time Frame: 4-6 Weeks Goal Progress: Goal Met Goal 4:: I with HEP Goal Time Frame: 4-6 Weeks Goal Progress: Progressing Anticipated Interventions Anticipated Interventions Patient/Client Instruction: Educate patient on: Condition and Plan of Care For the Purpose of:: To improve safety and To improve self management Therapeutic Exercise to Include: Strength training, Endurance training, Balance training, Gait and locomotor training and Dynamic Lumbar Stabilization For the Purpose of:: To improve muscle performance and motor function, To increase tolerance to activity/condition/position, To improve ability of physical actions for home/community/work/leisure, To improve gait and locomotor functions and To improve safety with gait Re-Evaluation Ending Re-evaluation ending: Please do not hesitate to contact me at [phone] by phone or if you have questions or concerns regarding this new plan of care! Sincerely, Thong Foster, PT, ATC
--- NOTE | 2024-09-18 13:12 | HP.PT.NRP ---
Patient Information Patient Information: WILI DENNY was seen in my office for initial evaluation on 04/29/24. The following Plan of Care was established for this patient: POC Established Initial Frequency: 2x /Week Initial Duration: 4-6 Weeks Anticipated Interventions Patient/Client Instruction: Educate patient on: Condition and Plan of Care For the Purpose of:: To improve safety and To improve self management Therapeutic Exercise to Include: Strength training, Endurance training, Balance training, Gait and locomotor training and Dynamic Lumbar Stabilization For the Purpose of:: To improve muscle performance and motor function, To increase tolerance to activity/condition/position, To improve ability of physical actions for home/community/work/leisure, To improve gait and locomotor functions and To improve safety with gait Last Seen Last Seen: This patient was last seen in our office . Pertinent comments regarding their Physical therapy will appear below: Pt has not returned for greater than 30 days and is discontinued at this time. At this point I will be discontinuing this patient from physical therapy. I would be happy to see this patient again in the future if found appropriate by the physician. Thank you! Thong Foster, PT, ATC Balance/Gait/Functional tests Balance/Special Test Scores Functional Gait Assessment Score: 14 % Disability: 53.3400 Lower Extremity Functional Score: 59 TUG Test Time Seconds: 10.77 Tug Test: <20 sec.=mostly independent 30 Second Chair Rise Test Seconds: 13
== END 2024-07-18 19:00 | disposition home or self-care (01) ==
LOC: PT 13:00
PROVIDERS: PCP Family Medicine; Referring Provider Family Medicine; Visit Provider Family Medicine
DX: R26.81 Unsteadiness on feet (principal); E11.40 Type 2 diabetes mellitus with diabetic neuropathy, unspecified; I13.0 Hypertensive heart and chronic kidney disease with heart failure and stage 1 through stage 4 chronic kidney disease, or unspecified chronic kidney disease; E78.2 Mixed hyperlipidemia; I48.19 Other persistent atrial fibrillation; I25.10 Atherosclerotic heart disease of native coronary artery without angina pectoris; I50.32 Chronic diastolic (congestive) heart failure; N18.32 Chronic kidney disease, stage 3b; E11.22 Type 2 diabetes mellitus with diabetic chronic kidney disease; Z95.3 Presence of xenogenic heart valve
CPT/HCPCS: 97110; 97116; 97161; 97530